=== PATIENT | male | born 1955 | race Caucasian/White ===

== ENCOUNTER 2020-06-15 23:47 | Emergency (ER) | payer MEDICARE, BC, SELFPAY ==
[2020-06-15 23:47] VITALS: BP 149/85; PULSE 92; RESP 15; TEMP 36.2; O2SAT 97; BMI 25.5
--- NOTE | 2020-06-16 00:02 | CT_ITS ---
STUDY: CT ABDOMEN AND PELVIS WITHOUT CONTRAST REASON FOR EXAM: Male, 64 years old. LEFT FLANK PAIN. H/O [place] RADIATION DOSAGE (If Supplied By Facility): CTDIvol = ( 7.71 ) mGy, DLP = ( 385.37 ) mGycm TECHNIQUE: Transaxial images were obtained from the dome of the diaphragm to the symphysis pubis without oral contrast, and without intravenous contrast. Sagittal and coronal images were reconstructed. Individualized dose optimization techniques were used for this CT. COMPARISON: None. FINDINGS: The visualized lung bases are unremarkable. The visualized portions of the heart are within normal limits. Normal liver. Normal gallbladder and extrahepatic biliary system. Normal spleen. Normal pancreas. Normal bilateral adrenal glands. Bilateral kidney stones, the largest measures 6 mm. There is moderate left hydronephrosis due to presence of 7 mm stone in the distal end of the left ureter at the ureterovesical junction. Normal visualized stomach. Normal small intestine. Normal colon. The appendix is visualized and appears normal. There is diffuse atherosclerotic calcification of the abdominal aorta, without a demonstrated aneurysm. Normal inferior vena cava. Normal retroperitoneum. Normal urinary bladder. There is a small umbilical hernia containing fat. There are diffuse degenerative changes of the visualized lumbar spine. CT/Abdomen/Pelvis without Cont IMPRESSION: Bilateral kidney stones, the largest measures 6 mm. There is moderate left hydronephrosis due to presence of 7 mm stone in the distal end of the left ureter at the ureterovesical junction. Electronically Signed: Aysha Bach, at 1:03 EDT Tel , Service support ,
[2020-06-16 00:18] LABS: Absolute Lymphocyte Count 0.97 X10^3/uL (0.83-4.51); Basophil# 0.05 X10^3/uL; Basophil% 0.6 % (0-1); Eosinophil# 0.21 X10^3/uL; Eosinophils% 2.6 % (0-5); Hematocrit 43.5 % (40-54); Hemoglobin 14.5 g/dL (13.0-16.5); Lymphocyte # 0.97 X10^3/ul (4.0); Lymphocyte % 11.8 % (19-41); Mean Corp Hgb Conc 33.3 g/dL (32-36); Mean Corpuscular Hgb 31.5 pg (27.0-32.0); Mean Corpuscular Volume 94.6 fL (80-94); Mean Platelet Vol. 9.8 fl (6.2-12.0); Monocyte% 12.2 % (0-10); NRBC Flagged by Analyzer 0 % (0-5); Neutrophil # 5.98 X10^3/uL (2.7-7.7); Neutrophil % 72.7 % (47-70); Platelet Count 238 K/mm3 (150-450); RBC Distribution Width CV 13.2 % (11.6-14.6); RBC Distribution Width SD 45.1 fl (35.1-43.9); White Blood Count 8.2 K/mm3 (4.4-11.0)
[2020-06-16 00:19] LABS: Bacteria 0 SEEN /hpf (None Seen); Mucous, Urine 0 SEEN /hpf (<or=2+); Squamous Epithelial Cells - UA 0 SEEN /hpf (0-5)
[2020-06-16 00:28] LABS: Anion Gap 5 (5-15); BUN 21 mg/dL (7-18); BUN/Creat Ratio 14.2 RATIO (10-20); Calcium,Total 8.9 mg/dL (8.5-10.1); Chloride 108 mmol/L (98-107); Creatinine, Serum 1.48 mg/dL (0.70-1.30); EST Glomerular Filtration Rate 51 mL/min (>60); Est Glom Filt Rate - Afr Amer 61 mL/min (>60); Estimated Creatinine Clearance 49.76 ml/min; Glucose 86 mg/dL (74-106); Potassium 3.8 mmol/L (3.5-5.1); Sodium Level 140 mmol/L (136-145)
[2020-06-16 00:29] LABS: Color, Urine Yellow (Yellow); Glucose, Dipstick Normal (Normal); Ketone-Dipstick Negative (Negative); Leukocyte Esterase-Dipstick Negative /ul (Negative); Nitrite-Dipstick Negative (Negative); Occult Blood-Urine 150 /ul (Negative); Protein-Dipstick 30 mg/dl (Negative); Urine Bilirubin Dipstick Negative (Negative); Urine Clarity Clear (Clear); Urine Urobilinogen 1 mg/dl (Normal)
[2020-06-16 00:42] LABS: Red Blood Cells-Urine 5-10 SEEN /hpf (0-5); White Blood Cells 0-5 SEEN /hpf (0-5)
--- NOTE | 2020-06-16 01:08 | ED.VISSUMM ---
- ER Visit Summary Date of Service: 06/16/20 Chief Complaint: [Flank pain] History of Present Illness: The patient is a 64 M [presents to the emergency department with complaint of flank pain for the last 2 days. Pain came on suddenly 2 days ago. She took some ibuprofen this evening and currently only rates his pain about a 5 out of 10. He does not anything for pain at this time. Patient does have history of kidney stones and states that he thinks he might be passing a kidney stone. He denies any fevers. He has had some urinary frequency and some dysuria but no hematuria. Patient otherwise has no medical history.] Physical Examination: [HEENT-PERRLA, EOMI. Cranial nerves II through XII grossly intact. TMs clear. Mucous membranes moist. No adenopathy. Cardiovascular-regular rate and rhythm without murmur or ectopy Lungs-clear to auscultation, chest wall stable without crepitus or subcu emphysema Abdomen-normoactive bowel sounds, soft, nontender, no rebound or rigidity, no peritoneal signs. Patient has some mild CVA tenderness on the left. Extremities-intact ?4, normal range of motion, normal pulses, atraumatic] Test Results: [CBC with differential was unremarkable. Chemistries unremarkable. Urinalysis showed 5-10 RBCs without signs of infection. BUN was [address] flank showed left hydroureter and hydronephrosis with a 7 mm stone in the distal end of the left ureter at the UVJ.] Emergency Department Course and Treatment: [ Established on arrival. Patient did not want anything for pain.] Treatment Plan: [Results discussed with patient. I offered to transfer the patient to another facility that had urology available given the size of the stone I explained that this may or may not pass. We do not have urology available this weekend. Patient would like to go home and try to pass the stone on his own. I will give him urine strainers and prescription for [place] for pain. Patient advised to return if worsening pain, fever, vomiting, or condition should worsen anyway.] Disposition: [Discharged home in stable condition] Impression: [Urolithiasis] This note was generated with [employer] software. It may contain incorrect words, spelling, and punctuation that were not noted in review of the chart prior to signing ED Disposition - Plan for ED Patient: Referrals: Varun Marquez MD [Primary Care Provider] -
--- NOTE | 2020-06-16 01:12 | ED.DEP ---
ED Disposition - Plan for ED Patient: Instructions: ED Renal Stone w Colic Prescriptions: Hydrocodone Bitart/Apap 5-325 [[place] 5MG-325MG] 1 tab PO Q4H PRN PRN 2 Days #20 tab PRN Reason: Pain Prescription Printed Referrals: Varun Marquez MD [Primary Care Provider] - Sung Piña MD [STAFF PHYSICIAN] - 3-5 Days
[2020-06-16 01:36] VITALS: BP 145/60; PULSE 79; RESP 18; O2SAT 96
== END 2020-06-16 01:37 | disposition home or self-care (01) ==
LOC: ED 06-16 00:29
PROVIDERS: Emergency Provider Emergency Medicine; PCP Family Medicine
DX: N13.2 Hydronephrosis with renal and ureteral calculous obstruction (principal); Z87.442 Personal history of urinary calculi
CPT/HCPCS: 74176; 80048; 81001; 85025; 99282

== ENCOUNTER → 2020-09-26 08:57 | Outpatient (CLI) | payer MEDICARE, BC, SELFPAY ==
--- NOTE | 2020-09-26 09:00 | RAD_ITS ---
STUDY: X-RAY - SACROILIAC JOINTS REASON FOR EXAM: Male, 65 years old. Left sided leg weakness, fall x3 weeks ago. TECHNIQUE: 3 view(s) of the sacroiliac joints were obtained. COMPARISON: None. FINDINGS: Normal bilateral sacroiliac joints. Normal visualized sacral ala and sacrum. Normal visualized iliac bones. Normal visualized soft tissue structures. RAD/S-I Jts 3 or More Views IMPRESSION: Normal x-ray examination of the bilateral sacroiliac joints. Electronically Signed: Jasen Cruz, at 13:06 EST , Service support ,
--- NOTE | 2020-09-26 09:00 | RAD_ITS ---
STUDY: X-RAY - LUMBAR SPINE REASON FOR EXAM: Male, 65 years old. Left sided leg weakness, fall x3 weeks ago. TECHNIQUE: 5 view(s) of the lumbar spine were obtained including oblique views. COMPARISON: None FINDINGS: Normal lumbar lordosis. There is no substantial scoliosis. There is a normal alignment of the vertebrae. There is multilevel endplate spondylosis of the lumbar vertebrae. There is multi-level degenerative disc disease with multi-level disc space narrowing. There is atherosclerotic calcification of the abdominal aorta without a demonstrated aneurysm. RAD/L/S Spine Min 4 Views IMPRESSION: Degenerative changes of the spine, as detailed above. Electronically Signed: Jasen Cruz, at 13:50 EST , Service support ,
[2020-09-26 12:18] LABS: Absolute Lymphocyte Count 1.26 X10^3/uL (0.83-4.51); Absolute Neutrophil Count 2.8 X10^3/uL (2.0-7.7); Basophil# 0.04 X10^3/uL; Basophil% 0.8 % (0-1); Eosinophil# 0.16 X10^3/uL; Eosinophils% 3.4 % (0-5); Hematocrit 45.2 % (40-54); Hemoglobin 13.6 g/dL (13.0-16.5); Lymphocyte # 1.26 X10^3/ul (4.0); Lymphocyte % 26.5 % (19-41); Mean Corp Hgb Conc 30.1 g/dL (32-36); Mean Corpuscular Hgb 29.6 pg (27.0-32.0); Mean Corpuscular Volume 98.5 fL (80-94); Mean Platelet Vol. 10.3 fl (6.2-12.0); Monocyte# 0.47 X10^3/uL; Monocyte% 9.9 % (0-10); NRBC Flagged by Analyzer 0 % (0-5); Neutrophil # 2.81 X10^3/uL (2.7-7.7); Neutrophil % 59.2 % (47-70); Platelet Count 255 K/mm3 (150-450); RBC Distribution Width CV 13.9 % (11.6-14.6); RBC Distribution Width SD 50.6 fl (35.1-43.9); Red Blood Count 4.59 M/mm3 (4.6-6.2); White Blood Count 4.8 K/mm3 (4.4-11.0)
[2020-09-26 12:38] LABS: AST(SGOT) 27 U/L (15-37); Alanine Aminotransfer ALT/SGPT 30 U/L (16-61); Albumin, Serum 3.7 g/dL (3.2-5.0); Alkaline Phosphatase 65 U/L (45-117); Anion Gap 4 (5-15); BUN 24 mg/dL (7-18); BUN/Creat Ratio 20.7 RATIO (10-20); Calcium,Total 8.9 mg/dL (8.5-10.1); Chloride 108 mmol/L (98-107); Cholesterol 233 mg/dL (200); Creatinine, Serum 1.16 mg/dL (0.70-1.30); EST Glomerular Filtration Rate 67 mL/min (>60); Est Glom Filt Rate - Afr Amer 81 mL/min (>60); Globulin 3.6 g/dL (2.2-4.2); Glucose 85 mg/dL (74-106); High Density Lipoprotein 53 mg/dL; Magnesium 1.5 mg/dL (1.6-2.6); Potassium 3.9 mmol/L (3.5-5.1); Protein, Total 7.3 g/dL (6.4-8.2); Sodium Level 141 mmol/L (136-145); Thyroid Stim Hormone (TSH) 1.59 uIU/mL (0.358-3.74); Triglycerides 77 mg/dL; Very Low Density Lipoprotein 15 mg/dL (5-40)
== END ==
PROVIDERS: PCP Family Medicine; Referring Provider Family Medicine; Visit Provider Family Medicine
DX: R29.898 Other symptoms and signs involving the musculoskeletal system (principal); Z13.220 Encounter for screening for lipoid disorders; R42 Dizziness and giddiness
CPT/HCPCS: 36415; 72110; 72202; 80053; 80061; 83735; 84443; 85025

== ENCOUNTER 2020-11-05 08:00 | Outpatient (RCR) | payer MEDICARE, BC, SELFPAY ==
--- NOTE | 2020-09-24 09:00 | HP.PTEVAL ---
Patient's Visit Information GORDY LEWIS is a 65 year old M referred to Physical Therapy by ORALIA Major with a diagnosis of dizziness and LOB. Date of Evaluation: 09/24/20 Physical Therapist: AILEEN Garnica - Visit Plan Frequency: 1x/Week Duration: 4 Weeks Plan: See the pt in 1 week to see if repositioning with the R Eply helped with his dizziness. Once that is corrected or imptoved test pt with FGA and VOR for further dizziness andn or LOB - Subjective Pt reports that he has a hard time getting up in am or if he lifts a heavy object gets dizzy or he loses his balance. 6 weeks or so ago he fell over a box at work and landed face first into some boxes and got a bloody nose out of it. On Wed he got a flu shot and then he was at work and fainted and laying on the floor and when he woke up he had a hard time concentrating and that it when the dizziness started. He has a hard time getting out of bed and hard time keeping his balance for awhile. Also whenenver he is lifting an object he loses his balance. He has a feeling of weakness in his back legs also. That all seems to come back periodically. Shortly after the fall he was diagnosed with COVID (about the first aug) and he also found out he had high BP. He gets dizzy when he rolls over and then he has some dizziness until he gets down the stairs and it is not room spinning at that point. If he puts forth an effort to lift something then he gets the feeling of weakness and general dizziness. - Objective Questionable Hallpike to the R. + for dizziness that lasted aprroc 60 seconds and no obvious to the naked eye nystagmus. -L Hallpike for dizziness or nystagmus. Re-tested R Hallpike and pt had increased dizziness that lasted aprox 60 seconds with no obvious nystagmus. Treated with the R Eply. Re-tested R hallpike and had slight dizziness for approx 30 seconds with no obvious nystagmus. Treated second time wit R Eply. Test R Hallpike again with only hint of dizziness that lasted 5 seconds and treated one more time with R Eply. Pt walking out with slight funny feeling in his head... advised pt to avoid prolong looking down the rest of the day - Goals Goal 1:: I HEP Goal Time Frame: 2 Weeks Goal 2:: Abolish dizziness with rolling to R side in bed Goal Time Frame: 2-4 Weeks Goal 3:: Test pt with FGA and with VOR Goal Time Frame: 2 Weeks - Rehabilitation Potential Rehabilitation Potential: Good - Anticipated Interventions Patient/Client Instruction: Educate patient on: Condition, Plan of Care For the Purpose of:: To improve muscle performance and motor function, To improve ability to perform ADL's, To increase tolerance to activity/condition/position, To improve performance and independence with ADL's, To improve ability of physical actions for home/community/work/leisure, To improve safety with gait Therapeutic Exercise to Include: Strength training, Balance training, Coordination, Postural training, Flexibilty training, Gait and locomotor training For the Purpose of:: To improve ability to perform ADL's, To increase tolerance to activity/condition/position, To improve performance and independence with ADL's, To decrease level of supervision to perform tasks, To improve ability of physical actions for home/community/work/leisure, To improve gait and locomotor functions, To improve balance, To improve safety with gait Functional Training to Include: Gait training For the Purpose of:: To improve gait and locomotor functions, To improve safety with gait Manual Therapy Techniques to Include: Other Comment: repositioning For the Purpose of:: To improve performance and independence with ADL's, To decrease level of supervision to perform tasks, To improve ability of physical actions for home/community/work/leisure, To improve gait and locomotor functions, To improve safety with gait Thank you for the opportunity to evaluate your patient. For Medicare and Medicare HMO plans, please review the plan of care and approve it. It will need to be FAXED BACK to us at [phone] for Medicare purposes. For Medicare only, by signing this I certify the plan of care. Please let me know if there are questions or concerns regarding this plan of care. Physician Signature: Date:
--- NOTE | 2020-10-01 08:11 | HP.PTREVAL ---
ORALIA Major, It has been my pleasure to treat GORDY LEWIS over the last 2 visits for dizziness and LOB. Please see the progress note below for an update on the physical therapy plan of care! Subjective: Pt reports that the dizziness is better. He has no dizziness when he first gets up in the morning. Since the treatment last week he has no dizziness. He reports that his balance is not so great particularly when he first gets up from sitting too long or if he lifts something that is a little too heavy. He reports that the Dr gave him a diagnosis of spinal stenosis. He has more weakness in his legs when he goes to lift something or carry something. No real pain. Objective/Function: Pt is very weak in his LE's!!! It seems to have come on him all of the sudden. -R Hallpike for dizziness and nystagmus. FGA: . LE MMT: B hip flex 3+/5, B hip abd 3+/5, B hip ext 2-/5, B knee flex 3+/5, B knee ext 4-/5, Pt able to raise his toes about 1/4 normal rom from the ground, and struggles with lifting his heels from the ground. Plan Plan: See the pt 2 X/ week for 4 weeks for LE strengthening of B hips, knees and ankles and some core strength with HEP first few visits to continue strengthening at home. May add some gait with head turns or some foam balance work along with strengthening..... Goals Goal 1:: I HEP Goal Time Frame: 2 Weeks Goal 2:: Abolish dizziness with rolling to R side in bed Goal Time Frame: 2-4 Weeks Goal Progress: Goal Met Goal 3:: Test pt with FGA and with VOR Goal Time Frame: 2 Weeks Goal Progress: Goal Met Goal 4:: Increase LE strength by 1/2 muscle grade (at the time of eval: LE MMT: B hip flex 3+/5, B hip abd 3+/5, B hip ext 2-/5, B knee flex 3+/5, B knee ext 4-/5, Pt able to raise his toes about 1/4 normal rom from the ground, and struggles with lifting his heels from the ground). 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 not feeling the weakness that he has now. Goal Time Frame: 4-6 Weeks Anticipated Interventions Patient/Client Instruction: Educate patient on: Condition, Plan of Care For the Purpose of:: To improve muscle performance and motor function, To improve ability to perform ADL's, To increase tolerance to activity/condition/position, To improve performance and independence with ADL's, To improve ability of physical actions for home/community/work/leisure, To improve safety with gait Therapeutic Exercise to Include: Strength training, Balance training, Coordination, Postural training, Flexibilty training, Gait and locomotor training For the Purpose of:: To improve ability to perform ADL's, To increase tolerance to activity/condition/position, To improve performance and independence with ADL's, To decrease level of supervision to perform tasks, To improve ability of physical actions for home/community/work/leisure, To improve gait and locomotor functions, To improve balance, To improve safety with gait Functional Training to Include: Gait training For the Purpose of:: To improve gait and locomotor functions, To improve safety with gait Manual Therapy Techniques to Include: Other Comment: repositioning For the Purpose of:: To improve performance and independence with ADL's, To decrease level of supervision to perform tasks, To improve ability of physical actions for home/community/work/leisure, To improve gait and locomotor functions, To improve safety with gait Please do not hesitate to contact me at [phone] by phone or if you have questions or concerns regarding this new plan of care! Sincerely, AILEEN Garnica
--- NOTE | 2020-12-24 10:53 | HP.PTDCSUM_ITS ---
It has been my pleasure to treat GORDY LEWIS referred by ORALIA Major, with the diagnosis of dizziness and LOB for a total of 10 visit(s). Discharge Date: 12/24/20 Please see the following information for a summary of their discharge status. Subjective: Pt reports that he has not had the spinning vertigo since the last visit but he still gets dizzy when he stands up too fast or sits up too fast. He reports that his leg weakness still persists with no pain. % Improvement: 25 Objective/Function: -R Hallpike for nystagmus or dizziness. Goal 1:: I HEP Goal 2:: Abolish dizziness with rolling to R side in bed Goal Progress: Goal Met Goal 3:: Test pt with FGA and with VOR Goal Progress: Goal Met Goal 4:: Increase LE strength by 1/2 muscle grade (at the time of eval: LE MMT: B hip flex 3+/5, B hip abd 3+/5, B hip ext 2-/5, B knee flex 3+/5, B knee ext 4-/5, Pt able to raise his toes about 1/4 normal rom from the ground, and struggles with lifting his heels from the ground). 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 not feeling the weakness that he has now. Plan: Hold chart X 2 weeks. pt will call in if he feels that his dizziness is due to BPPV is back. Pt will call in 2 weeks to let me know how he is doing. Discharge Comments: DC PT as pt is 100% better as far as his dizziness (still some if he stands up too fast but not like when he first came here) but his LE weakness persisits If there are questions or concerns regarding this patient's physical therapy, please feel free to call me at [phone]. Thank you for the referral of this patient. Sincerely, Lara Etienne, MPT
== END 2020-11-05 19:00 | disposition home or self-care (01) ==
LOC: PT 08:00
PROVIDERS: PCP Family Medicine; Referring Provider Physician Assistant; Visit Provider Physician Assistant
DX: R42 Dizziness and giddiness (principal)
CPT/HCPCS: 97110; 97161; 97530

== ENCOUNTER → 2021-01-13 08:45 | Outpatient (CLI) | payer MEDICARE, BC, SELFPAY ==
[2021-01-13 10:46] LABS: AST(SGOT) 23 U/L (15-37); Alanine Aminotransfer ALT/SGPT 39 U/L (16-61); Albumin, Serum 3.8 g/dL (3.2-5.0); Alkaline Phosphatase 84 U/L (45-117); Anion Gap 7 (5-15); BUN 21 mg/dL (7-18); BUN/Creat Ratio 18.4 RATIO (10-20); Calcium,Total 9.2 mg/dL (8.5-10.1); Chloride 106 mmol/L (98-107); Cholesterol 134 mg/dL (200); Creatinine, Serum 1.14 mg/dL (0.70-1.30); EST Glomerular Filtration Rate 68 mL/min (>60); Est Glom Filt Rate - Afr Amer 83 mL/min (>60); Globulin 3.8 g/dL (2.2-4.2); Glucose 92 mg/dL (74-106); High Density Lipoprotein 48 mg/dL; Magnesium 1.4 mg/dL (1.6-2.6); Potassium 3.8 mmol/L (3.5-5.1); Protein, Total 7.6 g/dL (6.4-8.2); Sodium Level 141 mmol/L (136-145); Triglycerides 95 mg/dL; Very Low Density Lipoprotein 19 mg/dL (5-40)
== END ==
PROVIDERS: PCP Family Medicine; Referring Provider Family Medicine; Visit Provider Family Medicine
DX: I10 Essential (primary) hypertension (principal); E83.42 Hypomagnesemia
CPT/HCPCS: 36415; 80053; 80061; 83735

== ENCOUNTER → 2021-03-13 12:08 | Outpatient (CLI) | payer MEDICARE, BC, SELFPAY ==
[2021-03-04 09:07] VITALS: BMI 25.5
--- NOTE | 2021-03-13 12:09 | MRI_ITS ---
STUDY: MRI BRAIN WITH AND WITHOUT CONTRAST REASON FOR EXAM: Male, 65 years old. Parkinsonism;Vertigo TECHNIQUE: Standardized multiplanar fat and water weighted pulse sequences were obtained. IV 15 cc dotarem was administered for the contrast portion of the examination. COMPARISON: None. FINDINGS: Normal size of the ventricles and extra-axial spaces for the patient''s age. Normal white matter tracts of the supratentorial brain. There is no evidence for recent intracranial ischemia or other cause of cytotoxic edema on diffusion weighted imaging (DWI). Normal T2* images of the brain without demonstrated susceptibility artifact. There is no demonstrated hemosiderin stain. Normal bilateral basal ganglia. Normal thalami. There is no extra-axial fluid accumulation. Normal flow voids within the major intracranial circulation suggesting patency by spin echo criteria. Normal venous enhancement. 2 cm mass of heterogeneous intensity within the parafalcine right frontal lobe with a surrounding hemosiderin ring with an adjacent feeding vessel but little contrast enhancement and no significant mass effect or vasogenic edema favoring a cavernous angioma or arteriovenous malformation. Normal sella turcica, pituitary gland, infundibular stalk, optic chiasm and hypothalamus. Normal tectal plate and pineal gland. Normal midbrain, silvestre and medulla. Normal cerebellum. Normal basal cisterns. Normal bilateral temporal bones. Normal bilateral internal auditory canals. No demonstrated orbital abnormality, within the constraints of a routine brain study. Normal visualized paranasal sinuses. Normal calvarium and skull base. Normal visualized soft tissue structures. Normal visualized upper cervical spine. MRI/Brain W/WO Contrast IMPRESSION: 2 cm mass of the right frontal lobe most consistent with a cavernous angioma or other vascular lesion. Electronically Signed: Shree Choi MD at 15:27 EDT Tel , Service support ,
[2021-03-13 12:36] LABS: CREATININE FINGERSTICK 1.5 mg/dL (0.70-1.30)
== END ==
PROVIDERS: PCP Family Medicine; Referring Provider Psychiatry & Neurology Neurology; Visit Provider Psychiatry & Neurology Neurology
DX: G20 Parkinson's disease (principal); R42 Dizziness and giddiness
CPT/HCPCS: 70553; A9575

== ENCOUNTER → 2021-03-28 08:50 | Outpatient (CLI) | payer MEDICARE, BC, SELFPAY ==
[2021-03-04 09:07] VITALS: BMI 25.5
--- NOTE | 2021-03-28 08:53 | CDU_ITS ---
Reason For Study: BRUIT, DIZZINESS, VERTIGO Rt. Velocities/BP Lt. Velocities/BP Prox CCA 95.6/12.1 cm/sec. Prox CCA 130.8/17.5 cm/sec. Mid CCA 102.1/16.0 cm/sec. Mid CCA 137.9/26.6 cm/sec. Dist CCA 94.3/16.0 cm/sec. Dist CCA 123.3/10.2 cm/sec. Prox ICA 98.1/20.8 cm/sec. Prox ICA 112.4/30.3 cm/sec. Mid ICA 129.0/32.1 cm/sec. Mid ICA 105.1/28.5 cm/sec. Dist ICA 125.3/24.8 cm/sec. Dist ICA 154.4/43.1 cm/sec. Rt. ICA/CCA = 129.0/102.1=1.3. Lt. ICA/CCA = 154.4/137.9=1.6. Prox ECA 179.1/5.7 cm/sec. Prox ECA 132.5/6.6 cm/sec. Rt. Vert. 58.9/10.5 cm/sec. Lt. Vert. 59.1/15.7 cm/sec. Right Extracranial There is homogeneous, smooth atherosclerotic plaque noted in the right common carotid artery. There is homogeneous, irregular atherosclerotic plaque noted in the right internal carotid artery. There is homogeneous, smooth atherosclerotic plaque noted in the right external carotid artery. Antegrade flow is noted in the right vertebral artery. There is heterogeneous, smooth atherosclerotic plaque noted in the right bulb. Left Extracranial There is homogeneous, smooth atherosclerotic plaque noted in the left common carotid artery. There is homogeneous, smooth atherosclerotic plaque noted in the left internal carotid artery. The tortuous nature of the left internal carotid artery may result in flow velocities overestimating the degree of stenosis. There is homogeneous, smooth atherosclerotic plaque noted in the left external carotid artery. Antegrade flow is noted in the left vertebral artery. Procedure Carotid Duplex [id number]. This is a Carotid Duplex examination using B-mode, color flow and specral Doppler. Exam performed in department. VL/Carotid Duplex Ultrasound Interpretation Summary Minimal irregular plaque at the proximal right internal carotid artery with melissa ocity based 50 to 69% stenosis although there is no plaque identified in the mid internal carotid art claudia at the site of slight velocity elevation. Less than 50% stenosis right external carotid artery Smooth plaque of the proximal left internal carotid artery. Velocity elevation is noted in the distal left internal carotid artery at the site of tortuosity but no plaque. Ag ain this is in the range of 50 to 69% stenosis although may be artificially elevated due to the to rtuosity Less than 50% stenosis left external carotid artery Patent antegrade vertebral arteries bilaterally Imaging findings do not suggest hemodynamically significant disease bilaterally Ordering Physician: Dao Pozo Referring Physician: Prokop. Brown Performed By: Xi Cavazos, YEYO, RVT
== END ==
PROVIDERS: PCP Family Medicine; Referring Provider Psychiatry & Neurology Neurology; Visit Provider Psychiatry & Neurology Neurology
DX: R42 Dizziness and giddiness (principal); I69.322 Dysarthria following cerebral infarction
CPT/HCPCS: 93880

== ENCOUNTER → 2021-04-30 09:34 | Outpatient (CLI) | payer MEDICARE, BC, SELFPAY ==
[2021-03-04 09:07] VITALS: BMI 25.5
[2021-04-30 12:29] LABS: Hemoglobin 14.8 g/dL (13.0-16.5); Mean Corp Hgb Conc 32.9 g/dL (32-36); Mean Corpuscular Hgb 31.3 pg (27.0-32.0); Mean Corpuscular Volume 95.1 fL (80-94); Mean Platelet Vol. 10.4 fl (6.2-12.0); Platelet Count 272 K/mm3 (150-450); RBC Distribution Width CV 13.3 % (11.6-14.6); RBC Distribution Width SD 47.3 fl (35.1-43.9); Red Blood Count 4.73 M/mm3 (4.6-6.2); White Blood Count 5.6 K/mm3 (4.4-11.0)
[2021-04-30 12:41] LABS: Vitamin B12 626 pg/mL (211-911)
[2021-04-30 13:32] LABS: AST(SGOT) 26 U/L (15-37); Alanine Aminotransfer ALT/SGPT 36 U/L (16-61); Albumin, Serum 3.8 g/dL (3.2-5.0); Alkaline Phosphatase 74 U/L (45-117); Anion Gap 4 (5-15); BUN 16 mg/dL (7-18); BUN/Creat Ratio 15.7 RATIO (10-20); Calcium,Total 8.9 mg/dL (8.5-10.1); Chloride 106 mmol/L (98-107); Creatinine, Serum 1.02 mg/dL (0.70-1.30); EST Glomerular Filtration Rate 78 mL/min (>60); Est Glom Filt Rate - Afr Amer 94 mL/min (>60); Globulin 3.7 g/dL (2.2-4.2); Glucose 85 mg/dL (74-106); Potassium 3.9 mmol/L (3.5-5.1); Protein, Total 7.5 g/dL (6.4-8.2); Sodium Level 137 mmol/L (136-145); Thyroid Stim Hormone (TSH) 2.61 uIU/mL (0.358-3.74)
[2021-05-01 16:09] LABS: Free Kappa Light Chains 29.8 mg/L (3.3-19.4); Free Lambda Light Chains 24.2 mg/L (5.7-26.3)
== END ==
PROVIDERS: PCP Family Medicine; Referring Provider Psychiatry & Neurology Neurology; Visit Provider Psychiatry & Neurology Neurology
DX: G57.90 Unspecified mononeuropathy of unspecified lower limb (principal); G25.0 Essential tremor; H81.90 Unspecified disorder of vestibular function, unspecified ear
CPT/HCPCS: 36415; 80053; 82140; 82607; 82746; 83883; 84443; 85027

== ENCOUNTER → 2021-05-10 09:19 | Outpatient (CLI) | payer MEDICARE, BC, SELFPAY ==
[2021-03-04 09:07] VITALS: BMI 25.5
--- NOTE | 2021-05-10 09:19 | MRI_ITS ---
STUDY: MRI CERVICAL SPINE WITHOUT CONTRAST REASON FOR EXAM: Male, 65 years old. neck pain; possible cervical myelopathy TECHNIQUE: Standardized fat and water weighted pulse sequences were obtained in the sagittal and axial planes. COMPARISON: None FINDINGS: Normal foramen magnum and brainstem-cervical cord junction. Normal craniovertebral junction. Normal anterior atlantoaxial articulation. Normal odontoid process. Normal cervical lordosis. Normal vertebral bodies and posterior osseous elements. C2-3: Normal endplates. Normal disc height, signal and morphology. Normal central canal and intervertebral neural foramina. C3-4: Normal endplates. Normal disc height, signal and morphology. Normal central canal and intervertebral neural foramina. C4-5: Normal endplates. Normal disc height, signal and morphology. Normal central canal and intervertebral neural foramina. C5-6: Normal endplates. Normal disc height, signal and morphology. Small central disc protrusion causes mild cord flattening. Normal central canal. Mild foraminal stenosis due to uncinate hypertrophy. C6-7: Normal endplates. Normal disc height, signal and morphology. Normal central canal and intervertebral neural foramina. C7-T1: Normal endplates. Normal disc height, signal and morphology. Normal central canal and intervertebral neural foramina. Normal cervical cord. Normal visualized soft tissue structures. MRI/Spine Cervical (Routine) IMPRESSION: 1. Small C5-6 disc protrusion. 2. Mild C5-6 foraminal encroachment. Electronically Signed: Lainey Dunn MD at 22:25 EDT Tel , Service support ,
== END ==
PROVIDERS: PCP Family Medicine; Referring Provider Psychiatry & Neurology Neurology; Visit Provider Psychiatry & Neurology Neurology
DX: M54.2 Cervicalgia (principal)
CPT/HCPCS: 72141

== ENCOUNTER → 2021-05-13 09:15 | Outpatient (CLI) | payer MEDICARE, BC, SELFPAY ==
[2021-03-04 09:07] VITALS: BMI 25.5
[2021-05-13 10:25] LABS: ALB/GLOB Ratio 1.1 RATIO (0.9-2.4); AST(SGOT) 21 U/L (15-37); Alanine Aminotransfer ALT/SGPT 28 U/L (16-61); Albumin, Serum 4.1 g/dL (3.2-5.0); Alkaline Phosphatase 74 U/L (45-117); Anion Gap 3 (5-15); BUN 19 mg/dL (7-18); BUN/Creat Ratio 16.8 RATIO (10-20); Calcium,Total 9.4 mg/dL (8.5-10.1); Chloride 106 mmol/L (98-107); Cholesterol 152 mg/dL (200); Creatinine, Serum 1.13 mg/dL (0.70-1.30); EST Glomerular Filtration Rate 69 mL/min (>60); Est Glom Filt Rate - Afr Amer 83 mL/min (>60); Globulin 3.7 g/dL (2.2-4.2); Glucose 91 mg/dL (74-106); High Density Lipoprotein 49 mg/dL; Potassium 4.8 mmol/L (3.5-5.1); Protein, Total 7.8 g/dL (6.4-8.2); Sodium Level 139 mmol/L (136-145); Triglycerides 96 mg/dL; Very Low Density Lipoprotein 19 mg/dL (5-40)
== END ==
PROVIDERS: PCP Family Medicine; Visit Provider Family Medicine
DX: E78.00 Pure hypercholesterolemia, unspecified (principal)
CPT/HCPCS: 36415; 80053; 80061

== ENCOUNTER → 2021-06-23 12:51 | Outpatient (CLI) | payer MEDICARE, BC, SELFPAY ==
[2021-03-04 09:07] VITALS: BMI 25.5
--- NOTE | 2021-06-23 14:19 | SP.MBSS_ITS ---
Modified Barium Swallow - Patient Information Study Date: 06/23/21 Study Time: 13:00 Direct Billable Minutes: 120 Total Minutes procedure & reportin Diagnosis: Dysphagia, unspecified (R13.10) Referring Physician: Dao Pozo Reason for Referral: Patient reported complaints of increased difficulty swallowing both food and drink. He was referred for MBS study for objective assessment of swallow function and aspiration risk. Medical History: The patient is a 65 year old male with PMH listed below who recently began outpatient PT for suspected Parkinson's disease (PD). He reported he is currently being treated for suspected PD with medication. When at outpatient PT, the patient informed the therapist he was having increased difficulty swallowing and was referred by his physician for MBSS to further assess swallow concerns. He reports occasional coughing with food and drink, especially when taking large or fast bites/sips. He reports more difficulty swallowing difficult to chew foods, such as steak. He denies history of pneumonia or choking. He reports occasional reflux, which he manages by maintaining his hydration. PMH: Arthritis, Cataracts, bilateral, Dizziness, High cholesterol, History of kidney stones, History of nephrolithotomy with removal of calculi, Hypertension, Tremor. Current Diet Ordered: Regular textures / Thin liquids Dentition: WNL Mental Status: WNL Respiratory Status: Oxygenating on Room Air - Penetration-Aspiration Scale Penetration-Aspiration Scale: OBJECTIVE ASSESSMENT OF SWALLOW FUNCTION (QUANTITATIVE ? PER TRIAL): PENETRATION / ASPIRATION SCALE (POOLE): 1 = does not enter airway 2 = enters airway/above vocal folds/ejected 3 = enters airway/above vocal folds/not ejected 4 = enters airway/contacts vocal folds/ejected 5 = enters airway/contacts vocal folds/not ejected 6 = enters airway/below vocal folds/ejected 7 = enters airway/below vocal folds/not ejected despite effort 8 = enters airway/below vocal folds/no effort VIDEOFLOROSCOPIC SCALE SCORE (POOLE): Grade I = aspiration of material that has penetrated into the laryngeal vestibule, intact cough reflex Grade II = aspiration < 10 % of the bolus, intact cough reflex Grade III = aspiration of < 10 % of the bolus, reduced cough reflex or aspiration of > 10 % of the bolus, intact cough reflex Grade IV = aspiration of > 10 % of the bolus, reduced cough reflex - Penetration-Aspiration Scale Score Thin Liquid via teaspoon Result: 1= does not enter airway Thin Liquid via teaspoon Trial 2 Result: 1= does not enter airway Thin Liquid via sequential sips from cup Result: 8= enters airway/below vocal folds/no effort - After the swallow, ASSISTANT READING TEACHER cued pt to cough which was somewhat effective at clearing residue from laryngeal vestibule. Thin Liquid via small single sip from cup Result: 1= does not enter airway Thin Liquid via small single sip from cup Trial 2 Result: 1= does not enter airway [place] Thick Liquid via small single sip from cup Result: 2= enter airway/above vocal folds/ejected - Trace penetration Honey Thick Liquid via small single sip from cup Result: 2= enter airway/above vocal folds/ejected - Trace penetration Comment: During trial, ASSISTANT READING TEACHER observed trace postprandial aspiration. Unable to determine from which trial/residues the contrast aspirated from. Pudding with Esophageal Screen Result: 1= does not enter airway Cookie Result: 1= does not enter airway Thin Liquid via single sip from straw Result: 2= enter airway/above vocal folds/ejected Thin Liquid via small single sip from cup Trial 3 Result: 2= enter airway/above vocal folds/ejected - Trace penetration - Oral Phase Labial Seal: No Labial Escape Tongue Control During Bolus Hold: Posterior escape of less than half of bolus Bolus Preparation/Mastication: Slow prolonged chewing/mashing with complete recollection Bolus Transport/Lingual Motion: Repetitive/disorganized tongue motion - Mild lingual pumping observed with cookie trial Oral Residue: Residue collection on oral structures - Pharyngeal Phase Initiation of Pharyngeal Swallow: Bolus head at posterior laryngeal surgace of epiglottis - Bolus head in laryngeal vestibule at initiation of swallow of sequential sips of thin liquids via cup. Soft Palate Elevation: No bolus between soft palate and pharyngeal wall Laryngeal Elevation: Partial superior movement thyroid cart/partial apprx aryt- epig petiole Anterior Hyoid Excursion: Partial anterior movement Epiglottic Movement: Partial inversion Laryngeal Vestibule Closure at Height of Swallow: Incomplete; narrow column of air/contrast in laryngeal vestibule Pharyngeal Stripping Wave: Present - complete Pharyngoesophageal Segment Opening: Parital distension and partial duration; parital obstruction of flow - Retention of min contrast consistently seen in the UES, as well as in the pyriform sinuses due to decreased distension/duration of UES opening. Tongue Base Retraction: Narrow column of contrast between tongue base & post. pharyngeal wall Pharyngeal Residue: Collection of residue within or on pharyngeal structures - Esophageal Phase Esophageal Clearance: Esophageal retention - Treatment Strategies Effects of treatment strategies attemped:: Decreased bolus rate = Effective in improving swallow onset and decreasing presence of aspiration of thin liquid trials. Use of straw = Not effective as it increased amount of laryngeal penetration of thin liquid trials. Cued cough and re-swallow = Somewhat effective in clearing aspirated contrast from the laryngeal vestibule and airway. - Diagnosis/Impression Diagnosis: Mild-moderate oropharyngeal phase dysphagia (R13.12) Impression: The oral phase of the swallow is marked primarily by prolonged but effective mastication of cookie trial, mild oral residues of oral cavity after the swallow, and premature posterior spillage of bolus - especially noted with sequential sips of thin liquid trial. The pharyngeal phase of the swallow is marked by delayed initiation of the pharyngeal swallow and decreased airway closure. The patient presents with moderately decreased anterior hyoid excursion and laryngeal elevation resulting inconsistent inversion of the epiglottis. Due to delayed initiation of swallow onset and decreased bolus control, bolus head of sequential sips of thin liquids were observed inside the laryngeal vestibule upon swallow onset. The patient demonstrated SILENT aspiration of sequential sips of thin liquids. He had flash penetration of various single liquid trials above the vocal folds that fully ejected from the laryngeal vestibule. Amount/depth of penetration increased for single sip of thin liquids consumed via straw; however, contrast did remain above the vocal folds and fully eject. - Recommendations Diet: Regular Textures - Easy to Chew (IDDSI Level 7), Thin Liquids Comment: Sips one at a time via cup. Compensatory Strategies: Small Bites, Small Sips, Slow Rate, Sitting upright, Remain sitting upright for 30 minutes after PO intake Supervision: Assist as needed Recommend Repeat Modified Barium Swallow: TBD Need for Skilled Speech Therapy Services: Yes Comment: Would recommend the patient for OP speech therapy services to address deficits in the oral and pharyngeal phases of his swallow. Would recommend thorough training in diet recommendations and aspiration precautions, in addition to implementation of a home oropharyngeal exercise program to promote improved lingual coordination, swallow onset, anterior hyoid excursion, laryngeal elevation, and UES opening (e.g. [place], effortful swallow, Phani, and Shaker). Recommended Referrals: GI Consult - If persistent concerns for reflux at or following meals, would consider patient for GI consult due to observed slowed esophageal motility. Education Completed: 1. Described result of evaluation., 7. Pt requires further education on strategies & risks. Comment: Reviewed results of MBS study with patient, informed pt of SILENT aspiration risk with continuous sips of thin liquids, increased risk for aspiration related illnesses, and educated the patient in diet and compensatory strategy recommendations to reduce his risk for aspiration. Additionally, reviewed recommendations for OP speech therapy to implement exercise program to improve oropharyngeal function. - Status Active ST Patient: Active - Contact Information [facility] [place] Speech Therapy:: [place] Richard M.A. [facility]-ASSISTANT READING TEACHER Speech-Language Pathologist [facility] [place] [address] [place] [address] [email or web address] [phone] 06/23/21 14:48
== END ==
PROVIDERS: PCP Family Medicine; Referring Provider Psychiatry & Neurology Neurology; Visit Provider Psychiatry & Neurology Neurology
DX: R13.10 Dysphagia, unspecified (principal)
CPT/HCPCS: 74230; 92611

== ENCOUNTER 2021-08-15 08:30 | Outpatient (RCR) | payer MEDICARE, BC, SELFPAY ==
[2021-03-04 09:07] VITALS: BMI 25.5
--- NOTE | 2021-06-09 09:43 | HP.PTEVAL ---
Patient's Visit Information GORDY LEWIS is a 65 year old M referred to Physical Therapy by Dr. Dao Pozo MD with a diagnosis of PD. Date of Evaluation: 06/09/21 Physical Therapist: AILEEN Garnica - Visit Plan Frequency: 2x /Week Duration: 4-6 Weeks Plan: Pt agreed and wants me to contact Dr about AFO's and his difficulty swallowing issue.... contacted Dr and they will decide if should go ahead with addressing the above now or wait will his appt next month. Either way, they will contact the patient. 2X/ week for 4-6 weeks for UE and LE strengthening, gait training, functional activities, balance activities, dual tasking activites with HEP - Subjective Pt was recently dx with PD. His weakness and balance issues have gotten worse since he fell at work. He had CoVID as well and he is just not getting back to where he was. He barely can go up and down the steps now. He has to do steps to get up to his bedroom. If he takes his time and uses the railing he is fine. He has been advised to change his home. He is retired now. He also has a history of L-stenosis (moderate). That seems to have come on quickly too. He sees his Dr again in a month.... He is on dopamine, BP med, cholesterol and magnesium. He gets dizzy at times and just a general feeling of weakness and LOB. He has had no falls in the last 6 months. He has started using the cane shortly after the first of the year.... in Oct his son got him the cane. He has not noticed a difference since starting the Dopamine. He did have a c-spine MRI as a consideration for LE weakness. He feels that he can walk a block with his cane and then he starts to get weaker the longer he walks and at about a xlock he feels that he has to rest. Stairs: up and down stairs he alternates with 1 hand rail. Sit to stand: he needs to use his hands to get out of a chair. 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 He is able to do his housework and rest if need be. He is progressivly getting weaker. Pt is getting more winded. Pt reports that he does choke on his food if he eats too quickly or with too big of a mouthful. If he takes his time he feels that he does ok... the swallowing issue comes and goes. He even chokes on a glass of water at times.... I encouraged the pt to talk to the Dr about it. Pt reports that he takes shorter steps and would be willing to get B ankle AFO's to help with his tripping on his feet (currently does this once a day).... He feels that his feet drag against the floor. - Objective Gait: walks with slow steppage gait with decrease DF and a straight cane. No arm swing. He is SOB after walking short distances and needs to sit and rest. Steps: up and down with 2 feet to a stair with B hand rails with CGA and slow pace. Tight B HS. LE MMT: B hip flex 3-/4, B knee ext 3+/5, B knee flex 3-/4, B hip abd 3-/5, pt is able to do 1/2 normal ROM bridge. B ankle DF 2-/5. He is not able to pecan picker his feet in standing. He can pecan picker his heels somewhat but not controlled nor steady. UE MMT: B shld flex 3-/4, B shld ABD 3-/4, ER and IR B 3+/5. FGA: 13. Seated opp arm and leg: (was discoordinated with opp arm and leg and difficulty lifting his legs into marching position). - Balance/Special Test Scores Functional Gait Assessment Score: 13 % Disability: 56.6700 - Goals Goal 1:: I HEP Goal Time Frame: 4-6 Weeks Goal 2:: Increase balance by increase FGA by 5 points to decrease fall risk (FGA at time of eval 13). Goal Time Frame: 4-6 Weeks Goal 3:: Increase UE and LE strength by 1/2 muscle grade (at time of the eval: LE MMT: B hip flex 3-/4, B knee ext 3+/5, B knee flex 3-/4, B hip abd 3-/5, pt is able to do 1/2 normal ROM bridge. B ankle DF 2-/5. He is not able to pecan picker his feet in standing. He can pecan picker his heels somewhat but not controlled nor steady). Goal Time Frame: 4-6 Weeks Goal 4:: Be able to walk with increase stride and increase heel to toe gait pattern with least restrictive device. Goal Time Frame: 4-6 Weeks Goal 5:: Be able to complete X 10 reps each leg seated opp arm and leg march consistetly in a row. Goal Time Frame: 4-6 Weeks - Rehabilitation Potential Rehabilitation Potential: Good - Anticipated Interventions Patient/Client Instruction: Educate patient on: Condition, Plan of Care For the Purpose of:: To improve nutrient delivery to tissue, To improve muscle performance and motor function, To improve ability to perform ADL's, To increase tolerance to activity/condition/position, To improve performance and independence with ADL's, To decrease level of supervision to perform tasks, To improve ability of physical actions for home/community/work/leisure, To improve gait and locomotor functions, To increase flexibility/ROM, To improve endurance, To improve balance, To improve safety with gait Therapeutic Exercise to Include: Strength training, Balance training, Postural training, Flexibilty training, Gait and locomotor training, Neuromotor development, Passive ROM, Active ROM, Dynamic Lumbar Stabilization For the Purpose of:: To improve muscle performance and motor function, To improve ability to perform ADL's, To increase tolerance to activity/condition/position, To improve performance and independence with ADL's, To decrease level of supervision to perform tasks, To improve ability of physical actions for home/community/work/leisure, To improve gait and locomotor functions, To improve health of tissue, To increase flexibility/ROM, To improve balance, To improve safety with gait Functional Training to Include: ADL Training, Gait training For the Purpose of:: To increase oxygenation perfusion, To improve muscle performance and motor function, To improve ability to perform ADL's, To increase tolerance to activity/condition/position, To improve performance and independence with ADL's, To decrease level of supervision to perform tasks, To improve ability of physical actions for home/community/work/leisure, To improve gait and locomotor functions, To improve health of tissue, To increase flexibility/ROM, To improve balance, To improve safety with gait Thank you for the opportunity to evaluate your patient. For Medicare and Medicare HMO plans, please review the plan of care and approve it. It will need to be FAXED BACK to us at [phone] for Medicare purposes. For Medicare only, by signing this I certify the plan of care. Please let me know if there are questions or concerns regarding this plan of care. Physician Signature: Date:
--- NOTE | 2021-07-04 10:58 | HP.PTREVAL ---
Dr. Dao Pozo MD, It has been my pleasure to treat GORDY LEWIS over the last 9 visits for PD. Please see the progress note below for an update on the physical therapy plan of care! Subjective: Pt has no pain today. He feels tired today. He feels that he has not seen too much progress. His balance has been so-so. He returns to the Dr on Jul 10. Pt feels that he is 25% better because he gets to come here and looks forward to coming here. Physically he has not seen much difference yet. Objective/Function: Gait: slow more short stride with a cane and still flexed trunk and SOB. FGA: 13. LE MMT;;;; Remains the same Plan Plan: 2X/ week for 4-6 weeks for UE and LE strengthening, gait training, functional activities, balance activities, dual tasking activities with HEP. Discussed Delay the Disease with the pt and he would like to start with the next session after some PT. Balance/Gait/Functional tests - Balance/Special Test Scores Functional Gait Assessment Score: 13 % Disability: 56.6700 Lower Extremity Functional Score: 22 Goals Goal 1:: I HEP Goal Time Frame: 4-6 Weeks Goal 2:: Increase balance by increase FGA by 5 points to decrease fall risk (FGA at time of eval 13). Goal Time Frame: 4-6 Weeks Goal 3:: Increase UE and LE strength by 1/2 muscle grade (at time of the eval: LE MMT: B hip flex 3-/4, B knee ext 3+/5, B knee flex 3-/4, B hip abd 3-/5, pt is able to do 1/2 normal ROM bridge. B ankle DF 2-/5. He is not able to diamond picker his feet in standing. He can diamond picker his heels somewhat but not controlled nor steady). Goal Time Frame: 4-6 Weeks Goal 4:: Be able to walk with increase stride and increase heel to toe gait pattern with least restrictive device. Goal Time Frame: 4-6 Weeks Goal 5:: Be able to complete X 10 reps each leg seated opp arm and leg march consistetly in a row. Goal Time Frame: 4-6 Weeks Anticipated Interventions Patient/Client Instruction: Educate patient on: Condition, Plan of Care For the Purpose of:: To improve nutrient delivery to tissue, To improve muscle performance and motor function, To improve ability to perform ADL's, To increase tolerance to activity/condition/position, To improve performance and independence with ADL's, To decrease level of supervision to perform tasks, To improve ability of physical actions for home/community/work/leisure, To improve gait and locomotor functions, To increase flexibility/ROM, To improve endurance, To improve balance, To improve safety with gait Therapeutic Exercise to Include: Strength training, Balance training, Postural training, Flexibilty training, Gait and locomotor training, Neuromotor development, Passive ROM, Active ROM, Dynamic Lumbar Stabilization For the Purpose of:: To improve muscle performance and motor function, To improve ability to perform ADL's, To increase tolerance to activity/condition/position, To improve performance and independence with ADL's, To decrease level of supervision to perform tasks, To improve ability of physical actions for home/community/work/leisure, To improve gait and locomotor functions, To improve health of tissue, To increase flexibility/ROM, To improve balance, To improve safety with gait Functional Training to Include: ADL Training, Gait training For the Purpose of:: To increase oxygenation perfusion, To improve muscle performance and motor function, To improve ability to perform ADL's, To increase tolerance to activity/condition/position, To improve performance and independence with ADL's, To decrease level of supervision to perform tasks, To improve ability of physical actions for home/community/work/leisure, To improve gait and locomotor functions, To improve health of tissue, To increase flexibility/ROM, To improve balance, To improve safety with gait Please do not hesitate to contact me at [phone] by phone or if you have questions or concerns regarding this new plan of care! Sincerely, AILEEN Garnica
--- NOTE | 2021-07-18 09:05 | HP.PTREVAL ---
Dr. Dao Pozo MD, It has been my pleasure to treat GORDY LEWIS over the last 12 visits for PD. Please see the progress note below for an update on the physical therapy plan of care! Subjective: Pt reports that he wants more PT. He is more confident with his balance and knowing that he can do things if he takes his time. He is not sure how much strength he has gained. Pt feels much better when he moves. Objective/Function: Seated opp arm and leg X 3 and then reverted back to same side. Very minor changes in strength...some increase ROM in bridges. Pt struggles to get out of a chair and generally has to pull self up. FGA 14.. slightly decrease Plan Plan: Pt to think about continuing with PD class after this next session and whether he wants HEP vs gym exercises. 2X/ week for 3 additional weeks for UE and LE strengthening, gait training, functional activities, balance activities, dual tasking activities with HEP. Discussed Delay the Disease with the pt and he would like to start with the next session after some PT. Balance/Gait/Functional tests - Balance/Special Test Scores Functional Gait Assessment Score: 14 % Disability: 53.3400 Lower Extremity Functional Score: 27 Goals Goal 1:: I HEP Goal Time Frame: 4-6 Weeks Goal Progress: Progressing Goal 2:: Increase balance by increase FGA by 5 points to decrease fall risk (FGA at time of eval 13). Goal Time Frame: 4-6 Weeks Goal 3:: Increase UE and LE strength by 1/2 muscle grade (at time of the eval: LE MMT: B hip flex 3-/4, B knee ext 3+/5, B knee flex 3-/4, B hip abd 3-/5, pt is able to do 1/2 normal ROM bridge. B ankle DF 2-/5. He is not able to supervisor opening and picking his feet in standing. He can supervisor opening and picking his heels somewhat but not controlled nor steady). Goal Time Frame: 4-6 Weeks Goal 4:: Be able to walk with increase stride and increase heel to toe gait pattern with least restrictive device. Goal Time Frame: 4-6 Weeks Goal 5:: Be able to complete X 10 reps each leg seated opp arm and leg march consistetly in a row. Goal Time Frame: 4-6 Weeks Goal Progress: Progressing Anticipated Interventions Patient/Client Instruction: Educate patient on: Condition, Plan of Care For the Purpose of:: To improve nutrient delivery to tissue, To improve muscle performance and motor function, To improve ability to perform ADL's, To increase tolerance to activity/condition/position, To improve performance and independence with ADL's, To decrease level of supervision to perform tasks, To improve ability of physical actions for home/community/work/leisure, To improve gait and locomotor functions, To increase flexibility/ROM, To improve endurance, To improve balance, To improve safety with gait Therapeutic Exercise to Include: Strength training, Balance training, Postural training, Flexibilty training, Gait and locomotor training, Neuromotor development, Passive ROM, Active ROM, Dynamic Lumbar Stabilization For the Purpose of:: To improve muscle performance and motor function, To improve ability to perform ADL's, To increase tolerance to activity/condition/position, To improve performance and independence with ADL's, To decrease level of supervision to perform tasks, To improve ability of physical actions for home/community/work/leisure, To improve gait and locomotor functions, To improve health of tissue, To increase flexibility/ROM, To improve balance, To improve safety with gait Functional Training to Include: ADL Training, Gait training For the Purpose of:: To increase oxygenation perfusion, To improve muscle performance and motor function, To improve ability to perform ADL's, To increase tolerance to activity/condition/position, To improve performance and independence with ADL's, To decrease level of supervision to perform tasks, To improve ability of physical actions for home/community/work/leisure, To improve gait and locomotor functions, To improve health of tissue, To increase flexibility/ROM, To improve balance, To improve safety with gait Please do not hesitate to contact me at [phone] by phone or if you have questions or concerns regarding this new plan of care! Sincerely, Lara Etienne MPT
--- NOTE | 2021-08-08 08:57 | HP.PTREVAL_ITS ---
Dr. Dao Pozo MD, It has been my pleasure to treat GORDY LEWIS over the last 18 visits for PD. Please see the progress note below for an update on the physical therapy plan of care! Subjective: Pt got his AFO's and he is struggling to walk with them as it is an extra weight on his legs and his balance is a little more off. Objective/Function: Gait with front wheeled walker: decreased heel strike on the L and B flexed knees, trunk and at times the walker would be out in front of him. He agreed that his walking is much more efficient with the walker. LE MMT: B hip flex 3+/4, B knee ext 3+/5, B knee flex 3-/4, B hip abd 3-/5. Feel that pt has not made much improvement in strength or balance. Plan Plan: See the Pt X 2 visits for HEP with written instuction to continue at home and also with PD class. Balance/Gait/Functional tests - Balance/Special Test Scores Functional Gait Assessment Score: 14 % Disability: 53.3400 Lower Extremity Functional Score: 22 Goals Goal 1:: I HEP Goal Time Frame: 4-6 Weeks Goal Progress: Progressing Goal 2:: Increase balance by increase FGA by 5 points to decrease fall risk (FGA at time of eval 13). Goal Time Frame: 4-6 Weeks Goal 3:: Increase UE and LE strength by 1/2 muscle grade (at time of the eval: LE MMT: B hip flex 3-/4, B knee ext 3+/5, B knee flex 3-/4, B hip abd 3-/5, pt is able to do 1/2 normal ROM bridge. B ankle DF 2-/5. He is not able to sisal picker his feet in standing. He can sisal picker his heels somewhat but not controlled nor steady). Goal Time Frame: 4-6 Weeks Goal 4:: Be able to walk with increase stride and increase heel to toe gait pattern with least restrictive device. Goal Time Frame: 4-6 Weeks Goal 5:: Be able to complete X 10 reps each leg seated opp arm and leg march consistetly in a row. Goal Time Frame: 4-6 Weeks Goal Progress: Progressing Anticipated Interventions Patient/Client Instruction: Educate patient on: Condition, Plan of Care For the Purpose of:: To improve nutrient delivery to tissue, To improve muscle performance and motor function, To improve ability to perform ADL's, To increase tolerance to activity/condition/position, To improve performance and independence with ADL's, To decrease level of supervision to perform tasks, To improve ability of physical actions for home/community/work/leisure, To improve gait and locomotor functions, To increase flexibility/ROM, To improve endurance, To improve balance, To improve safety with gait Therapeutic Exercise to Include: Strength training, Balance training, Postural training, Flexibilty training, Gait and locomotor training, Neuromotor development, Passive ROM, Active ROM, Dynamic Lumbar Stabilization For the Purpose of:: To improve muscle performance and motor function, To i mprove ability to perform ADL's, To increase tolerance to activity/condition/position, To improve performance and independence with ADL's, To decrease level of supervision to perform tasks, To improve ability of physical actions for home/community/work/leisure, To improve gait and locomotor functions, To improve health of tissue, To increase flexibility/ROM, To improve balance, To improve safety with gait Functional Training to Include: ADL Training, Gait training For the Purpose of:: To increase oxygenation perfusion, To improve muscle performance and motor function, To improve ability to perform ADL's, To increase tolerance to activity/condition/position, To improve performance and independence with ADL's, To decrease level of supervision to perform tasks, To improve ability of physical actions for home/community/work/leisure, To improve gait and locomotor functions, To improve health of tissue, To increase flexibility/ROM, To improve balance, To improve safety with gait Please do not hesitate to contact me at [phone] by phone or if you have questions or concerns regarding this new plan of care! Sincerely, Lara Etienne MPT
--- NOTE | 2021-08-15 09:45 | HP.PTDCSUM ---
It has been my pleasure to treat GORDY LEWIS referred by Dr. Dao Pozo MD, with the diagnosis of PD for a total of 20 visit(s). Discharge Date: 08/15/21 Please see the following information for a summary of their discharge status. Subjective: Pt reports that this is his last visit. He will try and do exercises at home and a gym exercises and possible do mat exercises here. He spoke to his Dr and they said they will try and send him to a Neurosurgeon. Pt will go to [facility] and see about getting a front wheeled walker today. He feels weaker today. B hips Pain Intensity (Out of 10): 2 Back pain Pain Intensity (Out of 10): 0 % Improvement: 10 Objective/Function: Whole body weakness persists. Posture is getting weaker and weaker in standing. Pt has to pull self to stand sitting on black foam. Called MD on Wednesday and spoke to nurse and she said they would contact the pt about test results and send over script for front wheeled walker.... script was given to pt on Wed for front wheeled walker. Goal 1:: I HEP Goal Progress: Goal Met Goal 2:: Increase balance by increase FGA by 5 points to decrease fall risk (FGA at time of eval 13). Goal Progress: Not Progressing Goal 3:: Increase UE and LE strength by 1/2 muscle grade (at time of the eval: LE MMT: B hip flex 3-/4, B knee ext 3+/5, B knee flex 3-/4, B hip abd 3-/5, pt is able to do 1/2 normal ROM bridge. B ankle DF 2-/5. He is not able to product picker his feet in standing. He can product picker his heels somewhat but not controlled nor steady). Goal Progress: Not Progressing Goal 4:: Be able to walk with increase stride and increase heel to toe gait pattern with least restrictive device. Goal 5:: Be able to complete X 10 reps each leg seated opp arm and leg march consistetly in a row. Goal Progress: Progressing Plan: DC PT to HEP Discharge Comments: DC PT to HEP and PD class If there are questions or concerns regarding this patient's physical therapy, please feel free to call me at [phone]. Thank you for the referral of this patient. Sincerely, Lara Etienne, MPT Balance/Gait/Functional tests - Balance/Special Test Scores Functional Gait Assessment Score: 14 % Disability: 53.3400 Lower Extremity Functional Score: 22
== END 2021-08-15 10:06 | disposition home or self-care (01) ==
LOC: PT 08:30
PROVIDERS: PCP Family Medicine; Visit Provider Psychiatry & Neurology Neurology
DX: G20 Parkinson's disease (principal)
CPT/HCPCS: 97110; 97162; 97530

== ENCOUNTER → 2021-09-08 16:54 | Outpatient (CLI) | payer MEDICARE, BC, SELFPAY ==
[2021-09-08 17:20] LABS: CREATININE FINGERSTICK 0.7 mg/dL (0.70-1.30); EGFR FINGERSTICK > 60.0000 mL/min (>60)
--- NOTE | 2021-09-08 17:20 | MRI_ITS ---
EXAM: MR HEAD WITHOUT AND WITH INTRAVENOUS CONTRAST CLINICAL INDICATION: Mild cognitive impairment. Cavernous angioma. TECHNIQUE: Multiplanar and multisequence MR images of the brain were obtained without and with intravenous contrast. This report was created using [employer] report [employer] technology. CONTRAST: 14 mL of IV DOTAREM. COMPARISON: MRI brain with and without contrast 03/13/2021. 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 Minimal enhancing intramedullary vein behind the posterior wall of the right frontal lobe cavernoma is an incidental focal DVA (developmental venous anomaly). This is unchanged. No intra- or extra-axial hemorrhage. No evidence of acute infarct. No intracranial mass or mass effect. There is preservation of the webb/white matter interface. Posterior fossa structures are unremarkable. Ventricles are appropriate for age. No hydrocephalus. Basal cisterns are patent. SELLA: Unremarkable. Normal sella turcica, pituitary gland, infundibular stalk, optic chiasm and hypothalamus. AUDITORY SYSTEM: Unremarkable. The internal auditory canals are patent. BONES/JOINTS: Unremarkable. No discrete lytic or blastic abnormalities. SINUSES: Unremarkable as visualized. Clear. MASTOID AIR CELLS: Unremarkable as visualized. Clear. ORBITS: Unremarkable as visualized. Both globes, extraocular muscles, optic nerves and retrobulbar fat appear unremarkable. VASCULATURE: See above. MRI/Brain W/WO Contrast IMPRESSION: 1. No MRI evidence of acute or subacute ischemic infarct or acute intracranial abnormality. 2. 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 3. Small enhancing focal DVA behind the posterior wall of the right frontal lobe benign cavernoma is also unchanged. Electronically Signed: Eren Sibley MD at 11:55 EST , Service support ,
== END ==
PROVIDERS: PCP Family Medicine; Visit Provider Psychiatry & Neurology Neurology
DX: D18.02 Hemangioma of intracranial structures (principal); G31.84 Mild cognitive impairment of uncertain or unknown etiology
CPT/HCPCS: 70553; A9575

== ENCOUNTER → 2021-09-12 11:04 | Outpatient (CLI) | payer MEDICARE, BC, SELFPAY ==
[2021-09-12 12:53] LABS: Magnesium 1.6 mg/dL (1.6-2.6)
== END ==
PROVIDERS: PCP Family Medicine; Referring Provider Psychiatry & Neurology Neurology; Visit Provider Psychiatry & Neurology Neurology
DX: E83.42 Hypomagnesemia (principal); G57.90 Unspecified mononeuropathy of unspecified lower limb
CPT/HCPCS: 36415; 82784; 83735; 84165; 86334; 86335

== ENCOUNTER → 2021-09-15 15:07 | Outpatient (CLI) | payer MEDICARE, BC, SELFPAY ==
[2021-09-17 16:09] LABS: Alpha-1-Globulins 0.3 g/dL (0.0-0.4); Alpha-2-Globulins 0.9 g/dL (0.4-1.0); Gamma Globulin 1.1 g/dL (0.4-1.8); Immunoglobulin A 167 mg/dL (61-437); Immunoglobulin G 962 mg/dL (603-1613); Immunoglobulin M 319 mg/dL (20-172); PROEL- TOTAL PROTEIN 7.2 g/dL (6.0-8.5)
== END ==
PROVIDERS: PCP Family Medicine; Referring Provider Psychiatry & Neurology Neurology; Visit Provider Psychiatry & Neurology Neurology
DX: G57.90 Unspecified mononeuropathy of unspecified lower limb (principal)
CPT/HCPCS: 36415; 82784; 84165; 86334

== ENCOUNTER 2021-12-22 18:26 | Emergency (ER) | payer MEDICARE, BC, SELFPAY ==
[2021-12-22 18:27] VITALS: BP 133/95; PULSE 124; RESP 16; TEMP 36.7; O2SAT 96; BMI 20.1
--- NOTE | 2021-12-22 19:07 | ED.VIS.GI ---
HPI HPI - GI History of Present Illness Chief Complaint: Constipation Informant: patient Abdominal Pain/Flank Pain Onset: Days Context: Gradual Onset Current Severity: Mild Maximum Severity: Mild Worsened by: Nothing Relieved by: Nothing Nausea/Vomiting/Emesis GI Symptom: Negative for Nausea and Vomiting Diarrhea/Melena/Hematochezia GI Symptom: Negative for Diarrhea, Melena and Hematochezia Associated Symptoms Associated Symptoms: Negative for Dysuria, Frequency and Hematuria Narrative Narrative: 66-year-old male history of kidney stones recently diagnosed with ALS. Says the last 3 days been constipated with last bowel movement around Wednesday. He denies vomiting. He denies diarrhea or melena. He denies fever. Really denies a lot of pain just that he feels very full. He has had episodes of constipation before. Prior similar symptoms: Yes Recent Illness/Hospitalization: No PFSH PFS Medical History ALS (amyotrophic lateral sclerosis) Arthritis Cataracts, bilateral Dizziness High cholesterol History of kidney stones History of nephrolithotomy with removal of calculi Hypertension Tremor Home Medications amlodipine 5 mg tablet 5 mg PO DAILY tab 03/04/21 [History Last Taken Unknown] atorvastatin 40 mg tablet 40 mg PO DAILY tab 03/04/21 [History Last Taken Unknown] magnesium oxide 400 mg (241.3 mg magnesium) tablet 400 mg PO DAILY tab 03/04/21 [History Last Taken Unknown] meclizine 25 mg tablet 25 mg PO BID PRN #60 tab 03/04/21 [Rx Last Taken Unknown] Disability Placard #1 ea 07/10/21 [Rx Last Taken Unknown] Walker #1 ea 08/11/21 [Rx Last Taken Unknown] Allergy/AdvReac Type Severity Reaction Status Date / Time Penicillins Allergy Unknown Verified 12/22/21 18:28 Social History Smoking Status: Never smoker Electronic Cigarette Use: not used second hand exposure: No alcohol intake: current alcohol intake frequency: a few times a week Alcohol type: beer substance use type: does not use ROS ROS ED ROS Narrative Constipation. Review of Systems ROS Unobtainable: Denies due to encephalopathy Constitutional Constitutional ED: Denies fever(s) ENT ENT ED: Denies ear pain Cardiovascular Cardiovascular: Denies chest pain Respiratory/Chest Respiratory/Chest: Denies dyspnea Gastrointestinal Gastrointestinal: Reports constipation; Denies abdominal pain, diarrhea, nausea or vomiting Genitourinary Genitourinary ED: Denies dysuria Musculoskeletal Musculoskeletal: Denies myalgias Integumentary Denies rash Neurologic Neurologic: Denies headache(s) Psychiatric Psychiatric: Denies depression Endocrine Endocrinology: Denies polyuria Hematologic/Lymphatic Hematologic/Lymphatic: Denies easy bruising Allergic/Immunologic Allergic/Immunologic ED: Denies urticaria EXAM Physical Exam Narrative Exam Narrative: 68-year-old male no acute distress vital signs stable afebrile. H EENT exam unremarkable. Moist with memories. Neck nontender no lymphadenopathy. Lungs clear to auscultation. Heart regular rhythm rate about 110 no murmur. Abdomen soft nondistended normal bowel sounds no peritoneal signs. No pulsatile mass. No right upper or right lower quadrant tenderness. No signs of obstruction. Moving all 4 extremities. Nontender no edema. Back nontender. Neurologically is awake and alert moving all 4 extremities. Const Vital Signs: 12/22/21 18:27 Temperature 98.0 F Temperature Source Temporal Pulse Rate 124 H Respiratory Rate 16 Blood Pressure 133/95 H Blood Pressure Mean 107 Pulse Ox 96 Oxygen Delivery Method Room Air Positive well nourished and well developed; Negative for cachectic, contractures or unkempt General Appearance ED: well developed and NAD; Negative for unkempt, cachectic, contractures or pallor Nutritional Appearance: Negative for cachectic HEENT Reports moist mucous membranes normocephalic and atraumatic Eyes PERRL and EOMs intact bilaterally Neck no lymphadenopathy, supple and no JVD General: Negative for tenderness Resp normal respiratory effort and clear to auscultation bilaterally Auscultation: Negative for rales, rhonchi or wheezes Cardio regular rate, regular rhythm, S1 normal heart sound, S2 normal heart sound and no murmurs GI non-tender, non-distended and no masses Inspection: Negative for abdominal distention Auscultation: normoactive bowel sounds; Negative for hyperactive bowel sounds or hypoactive bowel sounds Palpation: soft; Negative for tender, guarding, rigid or rebound tenderness present Back/Spine no CVA tenderness General Back: Negative for CVA tenderness Extremity full ROM General Extremety ED: Negative for edema or tenderness General Extremity: Negative for edema Neuro moves all extremities Sensorium / Orientation: alert, oriented to person, oriented to place and oriented to time; Negative for orientation impaired, confused, lethargic or stuporous Motor Exam: strength 5/5 throughout Psych mental status grossly normal and thought process normal Appearance: Negative for unkempt Attitude: No agitated Mood & Affect: Negative for depressed or tearful Skin no wounds General Skin Exam: Negative for jaundice or pallor Lesions: no lesions Rashes: no rashes MDM MDM MDM Narrative Medical decision making narrative: 66-year-old complaining constipation. KUB will be obtained. Abdomen is benign. X-ray showed large rectal fecal retention. Discussed with patient options. He has tried magnesium at home and stool softeners did not get any relief. And would like to have a enema done here. Nursing staff did a soapsuds enema. Patient had a moderate bowel movement. He was feeling improved. Prior to me even discharging him his family was present in her room and took him home. Patient told nurses he was feeling fine. Radiography Diagnostic Testing: Clinical Impression(s) from Imaging Studies KUB X-Ray 12/22/21 19:20 IMPRESSION: Oral contrast visualized in the rectal vault during large volume of stool. This finding suggests constipation. Electronically Signed: Sven Martin MD at 19:43 EST , KUB, single view, abdominal film shows large volume of stool in the rectum. No obstruction. Single view interpreted by myself and the radiologist. Discharge Plan Triage Chief Complaint: Constipation ED Provider: Randall Constantino Dx/Rx/DC Orders Clinical Impression: Constipation, Family hx of ALS (amyotrophic lateral sclerosis) Instructions: ED Constipation (Adult) Prescriptions: No Action amlodipine 5 mg tablet 5 mg PO DAILY RF: 0 magnesium oxide 400 mg (241.3 mg magnesium) tablet 400 mg PO DAILY RF: 0 atorvastatin 40 mg tablet 40 mg PO DAILY RF: 0 meclizine 25 mg tablet 25 mg PO BID PRN (Reason: dizziness) Qty: 60 RF: 2 (DME) Disability Placard See Rx Instructions .Route .MEDSUPPLY Qty: 1 RF: 0 (DME) Walker See Rx Instructions .Route .MEDSUPPLY Qty: 1 RF: 0 Primary Care Provider: Kevin Solorzano Referrals: Kevin Solorzano MD [Primary Care Provider] - Disposition Disposition: Home, Self Care
--- NOTE | 2021-12-22 19:20 | RAD_ITS ---
EXAM: XR ABDOMEN, 1 VIEW CLINICAL INDICATION: constipation TECHNIQUE: Frontal supine view of the abdomen/pelvis. This report was created using [employer] report generation technology. COMPARISON: None. FINDINGS: LOWER THORAX: No acute pathology. GASTROINTESTINAL TRACT: Oral contrast visualized in the rectal vault during large volume of stool. This finding suggests constipation. ORGANS: Unremarkable as visualized. No organomegaly. No abnormal calcifications. BONES/JOINTS: Degenerative findings in the hips and lumbar spine. SOFT TISSUES: No acute pathology. RAD/Abdomen Single View IMPRESSION: Oral contrast visualized in the rectal vault during large volume of stool. This finding suggests constipation. Electronically Signed: Sven Martin MD at 19:43 EST ,
== END 2021-12-22 21:25 | disposition home or self-care (01) ==
PROVIDERS: Emergency Provider Emergency Medicine; PCP Family Medicine; Visit Provider Emergency Medicine
DX: K59.00 Constipation, unspecified (principal); E78.00 Pure hypercholesterolemia, unspecified; I10 Essential (primary) hypertension
CPT/HCPCS: 74018; 99284

== ENCOUNTER 2022-01-08 20:01 | Inpatient (IN) | payer MEDICARE, BC, SELFPAY ==
[2022-01-08 20:02] VITALS: BP 125/73; PULSE 138; RESP 26; TEMP 37.5; O2SAT 92; BMI 18.3
[2022-01-08 20:08] VITALS: O2SAT 92
--- NOTE | 2022-01-08 20:23 | ED.RN ---
PER DAUGHTER PATIENT RECENTLY DIAGNOSED WITH ALS. DAUGHTER STATES PATIENT HAD A BUNCH OF TESTS DONE YESTERDAY. SHE STATES SHE THINKS THAT WORE HIM OUT. DAUGHTER STATES HE HAD PULMONARY TESTING DONE WELL AND EVER SINCE THE TESTS HE HAS BEEN SHORT OF BREATH.
--- NOTE | 2022-01-08 20:36 | EKG12_ITS ---
Test Reason : SOB Blood Pressure : / mmHG Vent. Rate : 129 BPM Atrial Rate : 129 BPM P-R Int : 134 ms QRS Dur : 116 ms QT Int : 318 ms P-R-T Axes : 065 064 045 degrees QTc Int : 465 ms Sinus tachycardia Nonspecific ST abnormality Abnormal ECG Confirmed by CT CARRANZA, ASHLY ([id number]), offline editor EHSAN AMIN ([id number]) on 01/12/2022 10:55:26 A M Referred By: PL Confirmed By:AMIRAH FOFANA MD
[2022-01-08] MEDS: Ipratropium/Albuterol Sulfate 3 ML AMPUL.NEB INHALATION (20:42)
[2022-01-08] MEDS: 0.9% Normal Saline 1,000 ML 999 ML IV ×2 (20:46→23:03)
[2022-01-08 20:51] LABS: Absolute Lymphocyte Count 0.26 X10^3/uL (0.83-4.51); Absolute Neutrophil Count 16.5 X10^3/uL (2.0-7.7); Basophil# 0.03 X10^3/uL; Basophil% 0.2 % (0-1); Eosinophil# 0.18 X10^3/uL; Hemoglobin 14.6 g/dL (13.0-16.5); Lymphocyte # 0.26 X10^3/ul (0.83-4.51); Lymphocyte % 1.4 % (19-41); Mean Corpuscular Hgb 31.4 pg (27.0-32.0); Mean Corpuscular Volume 92.5 fL (80-94); Mean Platelet Vol. 10.3 fl (6.2-12.0); Monocyte# 1.23 X10^3/uL; Monocyte% 6.7 % (0-10); NRBC Flagged by Analyzer 0 % (0-5); Neutrophil # 16.47 X10^3/uL (2.7-7.7); Neutrophil % 89.8 % (47-70); POSITIVE DIFFERENTIAL YES; Platelet Count 270 K/mm3 (150-450); RBC Distribution Width CV 13.8 % (11.6-14.6); RBC Distribution Width SD 47.1 fl (35.1-43.9); Red Blood Count 4.65 M/mm3 (4.6-6.2); White Blood Count 18.3 K/mm3 (4.4-11.0)
--- NOTE | 2022-01-08 20:51 | ED.VIS.DYS ---
HPI History of Present Illness Chief Complaint: Shortness of Breath Informant: patient Narrative Narrative: Patient arrives with cough shortness of breath and hypoxia as well as fever. He states he has been having a slight cough for maybe a week with a little bit of shortness of breath but over the last day has gotten a lot worse. He is not bringing up any sputum. 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 He normally does not have breathing issues. He did just get a pneumonia shot yesterday. He is not having chest pain. He has had significantly decreased appetite although he has had no nausea and vomiting. He does feel dehydrated. EMS was called because he was so short of breath today. They had his saturations at 70% on room air and he is not normally on oxygen. [facility] Medical History ALS (amyotrophic lateral sclerosis) Arthritis Cataracts, bilateral Dizziness High cholesterol History of kidney stones History of nephrolithotomy with removal of calculi Hypertension Tremor Home Medications amlodipine 5 mg tablet 5 mg PO DAILY tab 03/04/21 [History Last Taken Unknown] atorvastatin 40 mg tablet 40 mg PO DAILY tab 03/04/21 [History Last Taken Unknown] magnesium oxide 400 mg (241.3 mg magnesium) tablet 400 mg PO DAILY tab 03/04/21 [History Last Taken Unknown] Disability Placard #1 ea 07/10/21 [Rx Last Taken Unknown] Walker #1 ea 08/11/21 [Rx Last Taken Unknown] riluzole 50 mg PO DAILY 01/08/22 [History Last Taken Unknown] Allergy/AdvReac Type Severity Reaction Status Date / Time Penicillins Allergy Unknown Verified 01/08/22 20:07 Social History Smoking Status: Never smoker Electronic Cigarette Use: not used second hand exposure: No alcohol intake: current alcohol intake frequency: a few times a week Alcohol type: beer substance use type: does not use ROS ROS ED Constitutional Constitutional ED: Reports chills and fever(s) Eyes Eyes: Denies blurry vision or diplopia ENT ENT ED: Reports other Details: Positive dry mouth. ; Denies rhinorrhea or sore throat Cardiovascular Cardiovascular: Denies chest pain Respiratory/Chest Respiratory/Chest: Reports cough and dyspnea; Denies sputum Gastrointestinal Gastrointestinal: Reports other Details: Patient has had decreased appetite. ; Denies abdominal pain, diarrhea, nausea or vomiting Genitourinary Genitourinary ED: Denies dysuria Musculoskeletal Musculoskeletal: Denies arthralgias or myalgias Integumentary Denies rash Neurologic Neurologic: Reports other Details: Patient has chronic weakness from Gisselle Gehrig's but there is not acute change in this. ; Denies headache(s), paresthesias or weakness Endocrine Endocrinology: Denies polydipsia or polyuria Hematologic/Lymphatic Hematologic/Lymphatic: Denies easy bleeding or easy bruising Allergic/Immunologic Allergic/Immunologic ED: Denies mouth swelling or urticaria EXAM Physical Exam Const Vital Signs: 01/08/22 20:02 01/08/22 20:08 01/08/22 20:59 Temperature 99.5 F H Temperature Source Oral Pulse Rate 138 H 125 H Respiratory Rate 26 H 25 H Respiratory Effort Short of Breath Respiratory Pattern Tachypnea Tachypnea Blood Pressure 125/73 H Blood Pressure Mean 90 Pulse Ox 92 Oxygen Delivery Method Nasal Cannula Nasal Cannula Oxygen Flow Rate (L/min) 4 4 01/08/22 22:16 01/08/22 23:04 Temperature Temperature Source Pulse Rate 128 H 129 H Respiratory Rate 18 24 H Respiratory Effort Respiratory Pattern Blood Pressure 124/67 H 120/80 Blood Pressure Mean 86 93 Pulse Ox 95 94 Oxygen Delivery Method Nasal Cannula Nasal Cannula Oxygen Flow Rate (L/min) 4 4 Positive well nourished and well developed Constitutional Narrative: Patient does look ill. He is awake alert. General Appearance ED: well developed HEENT Reports dry mucous membranes HEENT Narrative: Very dry mucous membranes Mouth ED: Yes dry mucous membranes Mouth: dry mucous membranes Eyes General Eye ED: Negative for pale conjunctiva Neck supple Resp normal respiratory effort Resp Narrative: Respiratory effort and base line laying in bed looks good. But he does have coarse breath sounds both sides a little bit more on the right. Cardio regular rhythm and no murmurs Cardio Narrative: Patient's heart rate is tachycardic but does appear to be regular. Rate: tachycardic GI non-tender and non-distended Palpation: soft Extremity Extremity Narrative: Overall muscle wasting more in the lower than upper extremities. Neuro oriented x3 Neuro Narrative: Patient is alert oriented. He is not confused or lethargic at all. He has almost no motion lower extremities. Motion and production roustabout strength is reasonably good upper extremities though. He has good strength. He still has wasting up Sensorium / Orientation: alert Psych mental status grossly normal Skin Rashes: no rashes MDM MDM MDM Narrative Medical decision making narrative: Patient's labs do show very high white count which is consistent with pneumonia. Electrolytes show no marked abnormalities. There are signs of dehydration with significantly elevated BUN to creatinine ratio. He is being hydrated. Heart rate is come down from about 1 38-1 24 at this time. Blood pressure is now up at 140 systolic. Lactate is negative. Troponin is negative. His x-ray shows some bibasilar atelectasis. However, it was not impressive for pneumonia especially considering the saturation that was recorded at 70% at home. His saturations on 4 L are 95 to 94% now. He is comfortable. He felt the respiratory treatment did help his breathing. But with the x-ray that is not markedly abnormal, tachycardia and hypoxia I did do CTA of the chest. CTA of the chest showed bibasilar pneumonia but no PE. Patient will be admitted. His heart rate is down a bit. His blood pressure is better. He is awake alert and feels and looks better. Lab Data Attestation: I reviewed the patient's lab results. Labs: Laboratory Results - last 24 hr 01/08/22 01/08/22 01/08/22 20:20 20:20 20:20 WBC 18.3 H RBC 4.65 Hgb 14.6 Hct 43.0 MCV 92.5 MCH 31.4 MCHC 34.0 RDW Std Deviation 47.1 H RDW Coeff of Paul 13.8 Plt Count 270 MPV 10.3 Immature Gran % (Auto) 0.900 Neut % (Auto) 89.8 H Lymph % (Auto) 1.4 L Pettis % (Auto) 6.7 Eos % (Auto) 1.0 Baso % (Auto) 0.2 Absolute Neuts (auto) 16.5 H Absolute Lymphs (auto) 0.26 L Nucleated RBC % 0 Differential Comment SCANNED Sodium 140 Potassium 4.2 Chloride 103 Carbon Dioxide 34.0 H Anion Gap 3 L BUN 27 H Creatinine 0.81 Estim Creat Clear Calc 68.47 Est GFR (MDRD) Af Amer 121 Est GFR (MDRD) Non-Af 100 BUN/Creatinine Ratio 33.2 H Glucose 182 H Lactic Acid 1.7 Calcium 9.8 Troponin I High Sens 9 Radiography Diagnostic Testing: Clinical Impression(s) from Imaging Studies Chest X-Ray 01/08/22 21:08 IMPRESSION: Bibasilar atelectasis. Electronically Signed: Carlos Alberto Barrera MD at 21:33 EDT , Chest CTA 01/08/22 22:17 IMPRESSION: No evidence of demonstrated pulmonary embolism or arterial dissection. There are bilateral basilar infiltrates. Electronically Signed: Luca Romo MD at 23:41 EDT , Discharge Plan Dx/Rx/DC Orders Clinical Impression: Community acquired pneumonia, Acute respiratory failure with hypoxia, Sepsis Disposition Disposition: Acute Care Hospital [facility] Discharge Date/Time: 01/08/22 21:41
[2022-01-08 20:59] VITALS: PULSE 125; RESP 25
[2022-01-08 20:59] LABS: Differential Indicated SCAN CRITERIA MET
[2022-01-08 21:07] LABS: Lactic Acid 1.7 mmol/L (0.4-1.9)
--- NOTE | 2022-01-08 21:08 | RAD_ITS ---
STUDY: X-RAY CHEST REASON FOR EXAM: Male, 66 years old. cough TECHNIQUE: Portable, upright, AP chest radiograph COMPARISON: None. FINDINGS: Bibasilar atelectasis with mild hypoinflation. There is no demonstrated pleural abnormality. Normal size heart. Normal mediastinum and alphonso. Normal visualized pulmonary arteries. Normal visualized aortic arch and descending thoracic aorta. There is no demonstrated abnormality of the visualized soft tissue structures of the upper abdomen. RAD/Chest 1 View (Portable) IMPRESSION: Bibasilar atelectasis. Electronically Signed: Carlos Alberto Barrera MD at 21:33 EDT ,
[2022-01-08 21:10] LABS: Anion Gap 3 (5-15); BUN 27 mg/dL (7-18); BUN/Creat Ratio 33.2 RATIO (10-20); Calcium,Total 9.8 mg/dL (8.5-10.1); Chloride 103 mmol/L (98-107); Creatinine, Serum 0.81 mg/dL (0.70-1.30); EST Glomerular Filtration Rate 100 mL/min (>60); Est Glom Filt Rate - Afr Amer 121 mL/min (>60); Estimated Creatinine Clearance 68.47 ml/min; Glucose 182 mg/dL (74-106); Potassium 4.2 mmol/L (3.5-5.1); Sodium Level 140 mmol/L (136-145); Troponin-I HS 9 pg/mL (3.0-78.0)
[2022-01-08 21:48] LABS: Differential Comment SCANNED
[2022-01-08 22:16] VITALS: BP 124/67; PULSE 128; RESP 18; O2SAT 95
--- NOTE | 2022-01-08 22:17 | CT_ITS ---
STUDY: CTA CHEST REASON FOR EXAM: Male, 66 years old. Tachycardia, hypoxia RADIATION DOSAGE (If Supplied By Facility): CTDIvol = ( 7.61 ) mGy, DLP = ( 227.53 ) mGycm TECHNIQUE: The examination was performed with the intravenous administration of IV 75mL Isovue-370. Post-processing of the angiographic images was performed, with multiplanar reformation and 3D reconstruction. Individualized dose optimization techniques were used for this CT. COMPARISON: None. FINDINGS: Normal enhancement of the main pulmonary artery and right and left pulmonary arteries. Normal enhancement of the bilateral peripheral pulmonary arteries. There is no demonstrated pulmonary embolism. Normal thoracic aorta and visualized great vessels. There is no demonstrated aortic dissection. Normal heart and pericardium. Normal mediastinum. Normal hilar regions. Normal visualized trachea and bronchi. The lungs are well expanded. There are bilateral basilar infiltrates.. Normal pleura. Normal chest wall structures. Normal osseous structures. Normal visualized upper abdomen. CT/CTA Chest W/WO Contrast IMPRESSION: No evidence of demonstrated pulmonary embolism or arterial dissection. There are bilateral basilar infiltrates. Electronically Signed: Luca Romo MD at 23:41 EDT ,
[2022-01-08] MEDS: Acetaminophen 325 MG Tablet 650 MG PO (23:03)
[2022-01-08 23:04] VITALS: BP 120/80; PULSE 129; RESP 24; O2SAT 94
[2022-01-09] VITALS (17 sets, daily range): BP systolic 114–181; BP diastolic 65–112; PULSE 105–131; RESP 12–30; TEMP 36.6–37.2; O2SAT 5–98; BMI 18.4
--- NOTE | 2022-01-09 00:02 | HP.PCM.HOS_ITS ---
HPI - General General Date of Admission: 01/08/22 HPI Narrative GORDY LEWIS, is a 66 M with a significant history of hyperlipidemia; hypertension and amyotrophic lateral sclerosis on riluzole who presents to emergency department with a 3-day history of progressively worsening shortness of breath. His symptoms started about 4 days ago with a cough predominantly dry but occasionally with white clear sputum. Associated with his symptom is fatigue. Reportedly patient went to ALS clinic the day before presentation and that made him fatigued. Patient had a fever with home temperature of 101.4 Fahrenheit. Further, patient has been nauseous and has poor appetite. Reportedly in route to the hospital paramedics found his oxygen saturation to be 70% on room air. Patient require supplemental oxygenation at the emergency department. [facility] Medical History ALS (amyotrophic lateral sclerosis) Arthritis Cataracts, bilateral Dizziness High cholesterol History of kidney stones History of nephrolithotomy with removal of calculi Hypertension Tremor Home Medications amlodipine 5 mg tablet 5 mg PO DAILY tab 03/04/21 [History Last Taken Unknown] atorvastatin 40 mg tablet 40 mg PO DAILY tab 03/04/21 [History Last Taken Unkno wn] magnesium oxide 400 mg (241.3 mg magnesium) tablet 400 mg PO DAILY tab 03/04/21 [History Last Taken Unknown] Disability Placard #1 ea 07/10/21 [Rx Last Taken Unknown] Walker #1 ea 08/11/21 [Rx Last Taken Unknown] riluzole 50 mg PO DAILY 01/08/22 [History Last Taken Unknown] Allergy/AdvReac Type Severity Reaction Status Date / Time Penicillins Allergy Unknown Verified 01/08/22 20:07 Family History Other Dementia Surgical History no surgical history no surgical history Social History Smoking Status: Never smoker Electronic Cigarette Use: not used second hand exposure: No alcohol intake: current alcohol intake frequency: a few times a week Alcohol type: beer substance use type: does not use ROS ROS Narrative Constitutional: Reports fever. Reports fatigue. Reports anorexia. Report loss of weight of about 40 pounds in 1 year. Eyes: Denies blurry vision, change in eye color, change in vision, discharge fro m eye(s), double vision, erythema, eye pain, loss of vision or other HEENT: Denies abnormal hearing, dysphagia, ear pain, epistaxis, headache(s), hearing loss, nasal congestion, nasal discharge, post nasal drip, sinus pressure, sore throat or other Cardiovascular: Denies chest pain or palpitations. Denies dyspnea on exertion, orthopnea and paroxysmal nocturnal dyspnea Respiratory/Chest: Reports cough predominantly dry but occasionally productive. Gastrointestinal: Reports nausea. Denies abdominal pain, coffee ground emesis, constipation, diarrhea, dyspepsia, hematemesis, hematochezia, loose stools, melena, vomiting or other Genitourinary: Denies burning urination, difficulty urinating, dysuria, hematuria, nocturia, urinary frequency, urinary hesitancy, urinary incontinence, urinary urgency or other Musculoskeletal: With muscle weakness in bilateral lower extremities. Denies ar thralgias, back pain, joint pain, joint stiffness, joint swelling, myalgias, neck pain or other Neurologic: Denies confusion, dizziness, focal weakness, headache(s), numbness, paresthesias, seizure-like activity, seizures, syncope, tingling. Psychiatric: Denies anxiety, depression, homicidal ideation, suicidal ideation or other Endocrinology: Denies change in body appearance, cold intolerance, excessive sweating, heat intolerance, polydipsia, polyuria or other Hematologic/Lymphatic: Denies anemia, easy bleeding, easy bruising, lymphadenopathy or other Integumentary: Denies rashes Allergic/Immunologic: Denies rhinitis, hives, eczema, or other Vital Signs Vital Signs Vital Signs: 01/08/22 20:02 01/08/22 20:08 01/08/22 20:59 Temperature 99.5 F H Temperature Source Oral Pulse Rate 138 H 125 H Respiratory Rate 26 H 25 H Respiratory Effort Short of Breath Respiratory Pattern Tachypnea Tachypnea Blood Pressure 125/73 H Blood Pressure Mean 90 Pulse Ox 92 Oxygen Delivery Method Nasal Cannula Nasal Cannula Oxygen Flow Rate (L/min) 4 4 01/08/22 22:16 01/08/22 23:04 Temperature Temperature Source Pulse Rate 128 H 129 H Respiratory Rate 18 24 H Respiratory Effort Respiratory Pattern Blood Pressure 124/67 H 120/80 Blood Pressure Mean 86 93 Pulse Ox 95 94 Oxygen Delivery Method Nasal Cannula Nasal Cannula Oxygen Flow Rate (L/min) 4 4 Weight Weight: 54.7 kg Body Mass Index (BMI) 18.3 Physical Exam Narrative Physical exam: General: Cachectic. Head: Normocephalic, atraumatic, no tenderness Eyes: PERRLA, EOMI ENT, no trauma, dry mucous membranes, no rhinorrhea Neck: Nontender, full range of motion, no spinal tenderness, deformities, step- off CVS: Tachycardia. S1-S2 present. No murmur, gallop or rub. Respiratory : Decreased breath sounds at bases. Chest wall nontender, no wheezing Abdomen: Soft, nontender, nondistended, normal bowel sounds, no masses : Deferred Back: Nontender, no CVA tenderness, no midline spinal tenderness, deformities, step-offs Extremities: Cachectic. no trauma Skin: Normal color, no trauma, abrasions Neuro: Alert, oriented, cranial nerves II through XII grossly intact. Strength in bilateral lower extremities 3 out of 5. Strength in bilateral upper extremity 5 out of 5. Psychiatry: Normal mood. Normal affect. Not depressed. Not anxious. Results Lab / Micro Data Result Diagrams: 01/08/22 20:20 01/08/22 20:20 Labs: Laboratory Results - last 24 hr 01/08/22 20:20: WBC 18.3 H, RBC 4.65, Hgb 14.6, Hct 43.0, MCV 92.5, MCH 31.4, MCHC 34.0, RDW Std Deviation 47.1 H, RDW Coeff of Paul 13.8, Plt Count 270, MPV 10.3, Immature Gran % (Auto) 0.900, Neut % (Auto) 89.8 H, Lymph % (Auto) 1.4 L, [place] % (Auto) 6.7, Eos % (Auto) 1.0, Baso % (Auto) 0.2, Absolute Neuts (auto) 16 .5 H, Absolute Lymphs (auto) 0.26 L, Nucleated RBC % 0, Differential Comment SCANNED 01/08/22 20:20: Sodium 140, Potassium 4.2, Chloride 103, Carbon Dioxide 34.0 H, Anion Gap 3 L, BUN 27 H, Creatinine 0.81, Estim Creat Clear Calc 68.47, Est GFR (MDRD) Af Amer 121, Est GFR (MDRD) Non-Af 100, BUN/Creatinine Ratio 33.2 H, Glucose 182 H, Calcium 9.8, Troponin I High Sens 9 01/08/22 20:20: Lactic Acid 1.7 Micro: Microbiology 01/08/22 20:55 Mucosa - Nasopharyngeal Influenza Types A,B Direct FA (PEREZ) - Final 01/08/22 20:55 Nasal Secretion SARS-CoV-2 Antigen (Rapid) - Final Radiology Impression Chest X-Ray 01/08/22 21:08 IMPRESSION: Bibasilar atelectasis. Electronically Signed: Carlos Alberto Barrera MD at 21:33 EDT , Chest CTA 01/08/22 22:17 IMPRESSION: No evidence of demonstrated pulmonary embolism or arterial dissection. There are bilateral basilar infiltrates. Electronically Signed: Luca Romo MD at 23:41 EDT , Assessment & Plan Assessment/Plan (1) Pneumonia: (2) Protein calorie malnutrition: PLAN: Pneumonia Gram-positive, or gram-negative. Patient meets SIRS criteria with tachycardia; tachypnea and leukocytosis. Review of CBC showed white count of 18.3. QSOFA: 1 (RR>=22) Lactic acid: 1.7 Blood culture ordered. Chest CT was visualized and independently interpreted and agree with alleges impression of bilateral basilar infiltrates Respiratory Gram stain and culture ordered. MRSA nasal screen ordered. Antibiotics; started on azithromycin and ceftriaxone and continued. Levaquin not ordered as patient will be at risk of tendinopathy. Mucinex ordered. Legionella antigen screen and Strep antigen ordered Severe protein calorie malnutrition Cachexia. BMI of 18.3. Reported patient has lost about 40 pounds in 1 year. Ensure Enlive ordered. Dietitian consult Dehydration Dry mucous membrane Review of BMP showed BUN of 27. Compared to previous records current BUN is highest as so far in hospital system. Gentle IV hydration. Trend BMP Hypertension Blood pressure is stable in regard to his age. Amlodipine continued. Trend blood pressures DVT prophylaxis Subcutaneous Lovenox ordered Charges/Coding Visit Charges Inpatient E&M: 62508 Init Hosp L3
[2022-01-09] MEDS: 0.9% Normal Saline 1,000 ML 75 ML IV ×2 (01:37→16:53)
[2022-01-09 03:52] LABS: M R Staph aureus DNA By PCR Negative (Negative); Probe Check PASS; Specimen Processing Control PASS
[2022-01-09 06:50] LABS: Absolute Lymphocyte Count 0.69 X10^3/uL (0.83-4.51); Absolute Neutrophil Count 17.4 X10^3/uL (2.0-7.7); Basophil# 0.03 X10^3/uL; Basophil% 0.2 % (0-1); Eosinophil# 0.05 X10^3/uL; Eosinophils% 0.3 % (0-5); Hematocrit 39.4 % (40-54); Hemoglobin 12.5 g/dL (13.0-16.5); Lymphocyte # 0.69 X10^3/ul (0.83-4.51); Lymphocyte % 3.5 % (19-41); Mean Corp Hgb Conc 31.7 g/dL (32-36); Mean Corpuscular Hgb 30.6 pg (27.0-32.0); Mean Corpuscular Volume 96.3 fL (80-94); Mean Platelet Vol. 10.3 fl (6.2-12.0); Monocyte# 1.63 X10^3/uL; Monocyte% 8.2 % (0-10); NRBC Flagged by Analyzer 0 % (0-5); Neutrophil # 17.43 X10^3/uL (2.7-7.7); Neutrophil % 87.3 % (47-70); POSITIVE DIFFERENTIAL YES; POSITIVE MORPHOLOGY YES; Platelet Count 227 K/mm3 (150-450); RBC Distribution Width SD 49.3 fl (35.1-43.9); Red Blood Count 4.09 M/mm3 (4.6-6.2); White Blood Count 19.9 K/mm3 (4.4-11.0)
[2022-01-09 06:59] LABS: Differential Indicated SCAN CRITERIA MET
--- NOTE | 2022-01-09 07:12 | RAD_ITS ---
STUDY: X-RAY - ABDOMEN/PELVIS REASON FOR EXAM: Male, 66 years old. colonic distention TECHNIQUE: Single AP view of the abdomen / pelvis. COMPARISON: 01/08/2022 FINDINGS: Excluded lung bases. Similar gaseous distention of small bowel and colon with fecal residue in the descending and rectosigmoid colon. There is no demonstrated free abdominal air. The visualized liver, spleen and kidneys are grossly normal in size and morphology. Excreted contrast in the urinary bladder from prior CTA chest yesterday. Normal visualized osseous structures. RAD/Abdomen Single View (Portable) IMPRESSION: Overall similar diffuse ileus as compared to partial visualization on CTA chest yesterday. Electronically Signed: Mervin Crespo MD ([place]oks) at 8:20 EDT ,
[2022-01-09 07:13] LABS: Anion Gap 3 (5-15); BUN 23 mg/dL (7-18); Calcium,Total 9.4 mg/dL (8.5-10.1); Chloride 108 mmol/L (98-107); Creatinine, Serum 0.79 mg/dL (0.70-1.30); EST Glomerular Filtration Rate 103 mL/min (>60); Est Glom Filt Rate - Afr Amer 125 mL/min (>60); Estimated Creatinine Clearance 55.76 ml/min; Glucose 105 mg/dL (74-106); Potassium 3.9 mmol/L (3.5-5.1); Sodium Level 141 mmol/L (136-145)
[2022-01-09 07:21] LABS: Differential Comment S
[2022-01-09] MEDS: Enoxaparin 40 MG/0.4 ML Syringe SC (08:32)
--- NOTE | 2022-01-09 09:42 | CASEMGMT ---
Addendum entered by Marisela Sol 01/09/22 15:03: JUAN GREGORIO in to pt room. Pt lying in bed with O2 on. States he is very tired, low energy. Pt and dtr have had a chance to discuss dc plans but would like to hear all of the options again when pt has more energy. JUAN GREGORIO to follow. Addendum entered by Marisela Sol 01/09/22 11:29: TC to pt dtr and discussed dc planning with her. She states she has been looking into private duty services but cannot find availability for staffing. Discussed skilled home health care. She states that her and her work all day and she wants to make sure pt has the care he needs. She states her grandfather had a stay at a [facility] after he had pneumonia and is wondering if this is an option. Made her aware that PT and ST have not worked with him yet, but we can see the recommendation. She also wants to speak with the patient about this. She states she will be here in about 5-10 minutes to see pt. Addendum entered by Marisela Sol 01/09/22 10:37: JUAN GREGORIO back into pt room. Patient was provided a list of HHC/DME providers including quality and resource use data and consistent with the patient?s preferred geographic region, medical needs, and insurance network. Pt chose [facility] for DME but would like this JUAN GREGORIO to contact his dtr regarding the HHC as he does not know who she has called herself already. He would like her to make the decision for HHC for him. He has designated her as his person to discuss dc plans with. Original Note: JUAN GREGORIO Assessment: Face to Face with pt for initial transition planning/care coordination assessment. JUAN GREGORIO introduced self and role at [facility], pt voices understanding and consents to assessment. Pt is A/O x4 and answers all questions appropriately at this time. Pt sitting up in chair with O2 on in no distress. Care providers, pharmacy, and demographics verified/updated. Admitting Dx: PNA PCP:[facility], pt states he has been seeing a SEC REPORTING CONSULTANT there since has left. Specialists:neuro at [facility], pt can not remember the name Preferred Pharmacy: [facility] [place] Insurance: Fili SEWELL Prescription Benefit: yes LW/HPOA: Pt denies having a LW/DPOA and denies need for info regarding AD. LNOK: Marilee Conley, dtr Living Arrangements: Pt lives with dtr and son in law and grandson in a two story house with 3 steps to enter without a rail. Pt reports his kg or dtr wheel him in to the house. Pt reports he is mostly I in ADL's and his dtr assists him with bathing. Pt just moved in with dtr in the last 2wks although is still keeping his home. She has moved back to [place] from [place], [place]. Transportation: Pt does not drive. Dtr transports him to medical appts. DME/HHC/SNF: Pt has grab bars in the bathroom, FWW, w/c and a straight cane at home. Pt denies hx of HHC although states his dtr has been trying to get it for personal care. Discussed that this type of care is normally private pay. Made him aware that [place] and [place]. Pt is interested in this. Pt denies SNF stays. Pt states no concerns with going home at time of dc. Pt states no further concerns/needs. CM to follow. Advised pt to ask CM if any further question/concerns/needs arise, voices understanding. Pt Goal: Home with HHC Plan: Home with HHC
--- NOTE | 2022-01-09 11:40 | PCM.PN.HOSP ---
Subjective Subjective Diagnosed with ALS 6 weeks, previously thought to be Parkinson's, then MS. Started on riluzole 2 weeks ago. No abdominal pain. Objective Data Objective Data Vital Signs: Vital Signs Temp Pulse Resp BP Pulse Ox 36.6 C 105 H 18 120/73 5 01/09/22 08:21 01/09/22 08:21 01/09/22 08:21 01/09/22 08:21 01/09/22 09:15 Oxygen Flow Rate (L/min) 5 Oxygen Delivery Method Nasal Cannula Weight: 55 kg Body Mass Index (BMI) 18.4 Intake & Output: Intake and Output for Last 24 Hours 01/07/22 01/08/22 01/09/22 23:59 23:59 23:59 Intake Total 1305 / 1305 1000 / 1000 Balance 1305 / 1305 1000 / 1000 Lab / Micro Data Result Diagrams: 01/09/22 05:35 01/09/22 05:35 Labs: Laboratory Results - last 24 hr 01/08/22 20:20: WBC 18.3 H, RBC 4.65, Hgb 14.6, Hct 43.0, MCV 92.5, MCH 31.4, MCHC 34.0, RDW Std Deviation 47.1 H, RDW Coeff of Paul 13.8, Plt Count 270, MPV 10.3, Immature Gran % (Auto) 0.900, Neut % (Auto) 89.8 H, Lymph % (Auto) 1.4 L, Brooks % (Auto) 6.7, Eos % (Auto) 1.0, Baso % (Auto) 0.2, Absolute Neuts (auto) 16.5 H, Absolute Lymphs (auto) 0.26 L, Nucleated RBC % 0, Differential Comment SCANNED 01/08/22 20:20: Sodium 140, Potassium 4.2, Chloride 103, Carbon Dioxide 34.0 H, Anion Gap 3 L, BUN 27 H, Creatinine 0.81, Estim Creat Clear Calc 68.47, Est GFR (MDRD) Af Amer 121, Est GFR (MDRD) Non-Af 100, BUN/Creatinine Ratio 33.2 H, Glucose 182 H, Calcium 9.8, Troponin I High Sens 9 01/08/22 20:20: Lactic Acid 1.7 01/09/22 02:06: MRSA (PCR) Negative 01/09/22 05:35: WBC 19.9 H, RBC 4.09 L, Hgb 12.5 L, Hct 39.4 L, MCV 96.3 H, MCH 30.6, MCHC 31.7 L D, RDW Std Deviation 49.3 H, RDW Coeff of Paul 14.0, Plt Count 227, MPV 10.3, Immature Gran % (Auto) 0.500, Neut % (Auto) 87.3 H, Lymph % (Auto) 3.5 L, Brooks % (Auto) 8.2, Eos % (Auto) 0.3, Baso % (Auto) 0.2, Absolute Neuts (auto) 17.4 H, Absolute Lymphs (auto) 0.69 L, Nucleated RBC % 0, Differential Comment S, Diff Path Review February01/09/22 05:35: Sodium 141, Potassium 3.9, Chloride 108 H, Carbon Dioxide 30.0, Anion Gap 3 L, BUN 23 H, Creatinine 0.79, Estim Creat Clear Calc 55.76, Est GFR (MDRD) Af Amer 125, Est GFR (MDRD) Non-Af 103, BUN/Creatinine Ratio 29.0 H, Glucose 105, Calcium 9.4 Micro: Microbiology 01/09/22 10:05 Urine, Random Streptococcus pneumoniae Antigen (M - Final 01/09/22 10:05 Urine, Random Legionella Antigen - Final 01/08/22 20:55 Mucosa - Nasopharyngeal Influenza Types A,B Direct FA (PEREZ) - Final 01/08/22 20:55 Nasal Secretion SARS-CoV-2 Antigen (Rapid) - Final Radiography Diagnostic Testing: Radiology Impression Chest X-Ray 01/08/22 21:08 IMPRESSION: Bibasilar atelectasis. Electronically Signed: Carlos Alberto Barrera MD at 21:33 EDT , Chest CTA 01/08/22 22:17 IMPRESSION: No evidence of demonstrated pulmonary embolism or arterial dissection. There are bilateral basilar infiltrates. Electronically Signed: Luca Romo MD at 23:41 EDT , KUB X-Ray 01/09/22 07:12 IMPRESSION: Overall similar diffuse ileus as compared to partial visualization on CTA chest yesterday. Electronically Signed: Mervin Crespo MD (Brooks) at 8:20 EDT Reading Location ID and State: [address] [place] [address] , Service support , Physical Exam Const alert and no apparent distress HEENT Head and Scalp: normocephalic Eyes Eyes Narrative: amblyopia. no icterus. Resp normal respiratory effort and no retractions Resp Narrative: bibasilar crackles Cardio regular rate, regular rhythm, S1 normal heart sound and S2 normal heart sound GI normal to inspection, nondistended, normoactive bowel sounds, soft to palpation, non-tender and non-distended Extremity normal to inspection Assessment & Plan Assessment/Plan (1) Protein calorie malnutrition: QUALIFIERS: Protein-calorie malnutrition severity: severe Qualified Code(s): E43 - Unspecified severe protein-calorie malnutrition (2) Pneumonia: QUALIFIERS: Pneumonia type: due to unspecified organism Laterality: bilateral Lung location: lower lobe of lung Qualified Code(s): J18.9 - Pneumonia, unspecified organism (3) Acute respiratory failure with hypoxia: (4) Ileus: PLAN: 1. pneumonia Sepsis ruled out on Azithromycin and CTX. pulmonary toilet 2. Ileus NPO supportive mgmt 3. Severe protein calorie malnutrition exhibition carver consult 4. ALS complicates care on riluzole 5. VTE prophylaxis: LMWH. Charges/Coding Visit Charges Inpatient E&M: 52607 Subs Hosp L2
[2022-01-09] MEDS: Magnesium Chloride 64 MG Delay Rel.Tablet 128 MG PO (12:22)
[2022-01-09] MEDS: guaiFENesin 1,200 MG Tablet 1200 MG PO ×2 (12:22→21:42)
[2022-01-09] MEDS: amLODIPine 5 MG Tablet PO (12:23)
[2022-01-09] MEDS: Albuterol 2.5 MG/3 ML VIAL.NEB. INHALATION ×2 (14:10→20:08)
--- NOTE | 2022-01-09 14:23 | CASEMGMT ---
RADHA reviewed patient's chart due to his new diagnosis of ALS. SW met with patient and his daughter was also present. RADHA introduced self and role at [facility]. SW asked patient how he was doing and he said not so great. Patient politely told RADHA he does not feel like talking right now. SW told patient that is fine. SW certainly does not want to cause him anymore stress. Patient and his daughter thanked RADHA for checking in with them. RADHA passed along this information to MS3 RADHA. Mary [address] ASSOCIATE PROFESSOR OF RADIOLOGY SAMUEL
[2022-01-09] MEDS: LORazepam 2 MG/ML Bottle 0.5 MG PO ×2 (15:14→21:44)
[2022-01-09] MEDS: 0.9% Saline Lock 10 ML Syringe IV (21:42)
[2022-01-09] MEDS: Atorvastatin Calcium 40 MG Tablet PO (21:43)
[2022-01-09] MEDS: Ceftriaxone 1 GM/50 ML BAG IV (21:43)
--- NOTE | 2022-01-09 23:30 | RAD_ITS ---
EXAM: XR CHEST, 1 VIEW : 1955 CLINICAL INDICATION: shortness of breath TECHNIQUE: Frontal view of the chest. This report was created using [employer] report generation technology. COMPARISON: 01/08/22 FINDINGS: LUNGS AND PLEURAL SPACES: Bilateral lower lobe airspace disease. No pneumothorax. No effusion. HEART: Unremarkable. Cardiac silhouette not enlarged. MEDIASTINUM: Central airways and mediastinal contour are unremarkable. BONES/JOINTS: Unremarkable. SOFT TISSUES: Unremarkable. RAD/Chest 1 View (Portable) IMPRESSION: Bilateral lower lobe airspace disease. Findings may indicate pneumonia. at 0147 Reported and signed by: Sven Roe MD Electronically Signed: Sven Roe MD at 1:46 EDT ,
--- NOTE | 2022-01-09 23:32 | PCM.PN.BLA ---
Progress Note Called to the bedside because of increasing respiratory distress. At baseline patient reports that increasing he is having he is not having enough oxygen. Patient was on a nonrebreather mask and nasal: Oxygen at the time of examination. Physical examination Tachypnea. Decreased lung sounds at right base. Impression Acute hypoxemic respiratory failure Patient currently on ceftriaxone and azithromycin. He has allergy to penicillin. Reportedly he breaks in hives with penicillin. Chest x-ray ordered. Review of records shows negative MRSA nares on his admission. Will broaden antibiotics. Stop ceftriaxone. Start cefepime to cater for Pseudomonas. Start Flagyl to care for anaerobes. Clindamycin ordered due to high risk of C. difficile. BiPAP ordered. Change status from message to MedSurg with telemetry.
[2022-01-10] VITALS (21 sets, daily range): BP systolic 96–126; BP diastolic 65–86; PULSE 92–122; RESP 12–35; TEMP 36.6–37.6; O2SAT 92–99
[2022-01-10] MEDS: metroNIDAZOLE 500 MG/100 ML BAG 100 MG IV ×4 (00:01→21:27)
[2022-01-10 00:06] LABS: Base Excess 3 mmol/L (-2 to +2); Bicarbonate 29.2 mmol/L (22-26); Blood Gas Specimen Type ART; FI02 100; O2 Delivery Device BiPAP; PEEP 8; PO2 95 mmHG (75-100); PS 7; SITE R Radial; SO2 97 % (95-99); Total Carbon Dioxide 31 mmol/L; pCO2 57.1 mmHg (35-45); pH 7.32 (7.35-7.45)
[2022-01-10] MEDS: 0.9% Normal Saline 1,000 ML 75 ML IV (05:30)
--- NOTE | 2022-01-10 08:57 | RAD_ITS ---
STUDY: X-RAY - ABDOMEN/PELVIS REASON FOR EXAM: Male, 66 years old. Ileus follow up TECHNIQUE: Two AP supine views of the abdomen and pelvis. COMPARISON: January 09, 2022, imaging FINDINGS: The lung bases are mostly out of the [id number]. There is a gassy distended appearance of most of the colon. There is a column of stool within the sigmoid colon to the rectum compatible with fecal impaction constipation. There is an unremarkable bowel gas pattern. There is no demonstrated free abdominal air. The liver silhouette appears normal. Splenic kidneys are obscured. Normal soft tissue structures. There are diffuse degenerative changes of the visualized lumbar spine. RAD/Abdomen Single View (Portable) IMPRESSION: Fecal impaction from the sigmoid to the rectum, constipation causing gassy gas-filled loops of colon and small bowel. Electronically Signed: Radha Dempsey MD at 15:45 EDT ,
--- NOTE | 2022-01-10 08:57 | PCM.PN.HOSP ---
Subjective Subjective Events reviewed. Breathing ok with BiPAP. Objective Data Objective Data Vital Signs: Vital Signs Temp Pulse Resp BP Pulse Ox 36.7 C 111 H 26 H 122/76 H 98 01/10/22 07:25 01/10/22 08:33 01/10/22 08:33 01/10/22 07:25 01/10/22 08:33 Oxygen Flow Rate (L/min) 5 Oxygen Delivery Method Bi-pap Weight: 55 kg Body Mass Index (BMI) 18.4 Intake & Output: Intake and Output for Last 24 Hours 01/08/22 01/09/22 01/10/22 23:59 23:59 23:59 Intake Total 1305 / 1305 2305 / 2315 1256.25 / 1256.25 Balance 1305 / 1305 2305 / 2315 1256.25 / 1256.25 Medical Nutrition Assessment Dietitian: Malnutrition Criteria Met Start: 01/09/22 13:38 Freq: Status: Active Protocol: Document 01/09/22 13:38 (Rec: 01/09/22 13:38 [id number]) Nutrition Malnutrition Evidence of Malnutrition Exists Yes Malnutrition (severe): Chronic Evidenced By Suboptimal Energy Intake ( Severe),Weight Loss (Severe), Physical Changes (Severe) Clinical Problem Chronic Disease or Condition Related Malnutrition Etiology severe, chronic malnutrition r /t inadequate energy intake d/ t weakness, swallowing difficulty Signs/Symptoms as evidenced by unintentional wt loss of 38.7#/24% x 1 year; estimated PO intake meeting < 75% of estimated energy needs >3 months; severe muscle wasting/fat loss evident per physical exam in clavicles, temples, upper extremities, orbital area. Status Active Problem Recommendation Dietitian Recommendations/Changes continue regular diet, texture /consistency modifications per PRODUCT DESIGNER; will add 4oz ensure w/ meals- continue 4oz 4x/day w/ medpass. Will try ensure pudding at meals. Lab / Micro Data Result Diagrams: 01/09/22 05:35 01/09/22 05:35 Micro: Microbiology 01/09/22 10:05 Urine, Random Streptococcus pneumoniae Antigen (M - Final 01/09/22 10:05 Urine, Random Legionella Antigen - Final 01/08/22 20:55 Mucosa - Nasopharyngeal Influenza Types A,B Direct FA (PEREZ) - Final 01/08/22 20:55 Nasal Secretion SARS-CoV-2 Antigen (Rapid) - Final ABG Data ABG results: ABG 01/09/22 23:57 Specimen Type ART Sample Site R Radial pH 7.32 L Bicarbonate Actual 29.2 H Total CO2 31 Base Excess 3 H O2 Saturation 97 O2 % 100 ABG pCO2 57.1 H ABG pO2 95 Mp Test N/A O2 Delivery Device BiPAP POC PEEP 8 POC Pressure Suppt 7 Clinical Comments 15*8 rate 12 Radiography Diagnostic Testing: Radiology Impression Chest X-Ray 01/09/22 23:30 IMPRESSION: Bilateral lower lobe airspace disease. Findings may indicate pneumonia. at 0147 Reported and signed by: Sven Roe MD Electronically Signed: Sven Roe MD at 1:46 EDT , Physical Exam Const alert and no apparent distress Constitutional Narrative: on BiPAP. cachexictic. HEENT HEENT Narrative: temporal wasting. Resp normal respiratory effort and no retractions Resp Narrative: Worse breath sounds bilaterally Cardio regular rate, regular rhythm, S1 normal heart sound and S2 normal heart sound GI normal to inspection, nondistended, normoactive bowel sounds, soft to palpation and non-tender Skin no rashes or lesions noted Neuro Sensorium / Orientation: awake and alert Psych Psych Narrative: flat affect Assessment & Plan Assessment/Plan (1) Protein calorie malnutrition: QUALIFIERS: Protein-calorie malnutrition severity: severe Qualified Code(s): E43 - Unspecified severe protein-calorie malnutrition (2) Pneumonia: QUALIFIERS: Pneumonia type: due to unspecified organism Laterality: bilateral Lung location: lower lobe of lung Qualified Code(s): J18.9 - Pneumonia, unspecified organism (3) Acute respiratory failure with hypoxia: (4) Ileus: PLAN: 1. acute hypoxic respiratory failure Likely multifactorial due to pneumonia, aspiration, ALS and possibly also with his ileus Improved Hopefully we can wean off BiPAP today Pulmonary toilet 2. Pneumonia Sepsis ruled out Aspiration Overnight, azithromycin and CTX was changed to azithromycin, metronidazole and cefepime Reviewing the patient's chest x-ray does not appear to be any significant worsening of his infiltrate Will DC the azithromycin 3. Ileus Patient had profound ileus noted on his chest x-ray from yesterday but was not commented on by the radiologist. Will recheck an abdominal x-ray is clinically he seems to be improving today. Will advance diet, to pur?ed and honey thickened liquids. 4. Severe protein calorie malnutrition complicates care and recovery assisted living care manager consult 5. ALS complicates care on riluzole 6. VTE prophylaxis: LMWH. Advance care planning: Spent an additional 30 minutes in which I discussed with the patient and his daughter, Marilee, verified CODE STATUS that is DNR Comfort Care arrest no intubation. Also verified that patient does not want any artificial means of nutrition including PEG tube, Dobbhoff. He is okay with NG tube for decompression purposes if necessary. Discussed with him about palliative care which she is not been established with and after discussing with him about the purpose of palliative care and regards to helping with symptoms he is agreeable to speaking with him. He also understands the palliative care can be transitioned over to hospice when the time is appropriate. Discussed with Marilee today about all of this with the patient's permission. Informed them both that we will let him eat on a modified diet understanding that the risk of aspiration is still present given his ALS. All questions were answered. Charges/Coding Visit Charges Inpatient E&M: 95346 Subs Hosp L3 Procedures Hospitalists Procedures: 53518 Advncd Care Plan 30 Min
--- NOTE | 2022-01-10 09:28 | CASEMGMT ---
JUAN GREGORIO updated by [facility] charge that hospitalist requesting palliative consult for ALS. JUAN GREGORIO completed screening tool and sent referral to [facility].
[2022-01-10] MEDS: Enoxaparin 40 MG/0.4 ML Syringe SC (12:23)
[2022-01-10] MEDS: amLODIPine 5 MG Tablet PO (13:47)
--- NOTE | 2022-01-10 14:10 | CASEMGMT ---
SW Note Referral Source: [facility] SW Referral Reason: Support and discharge planning SW met with patient and his daughter and son in law. Patient had recently been diagnosed with ALS. He stated through hand gestures that he was so so as he was on bipap. SW advised that a referral had been made to palliative care for patient. Daughter said that she was not sure what palliative care is and thus this typewriter ribbon winder educated on palliative care. Daughter said that they have not determined a discharge plan for patient yet. Daughter said that she and patient talked this morning about hospice as patient's father was in hospice and it was a positive experience. SW offered that if they need additional information from Hospice to let staff know and daughter and son in law verbalized understanding. Emotional support provided. Plan: TO be determined. Emotional support provided. Ariana BOUCHER
[2022-01-10] MEDS: LORazepam 2 MG/ML Bottle 0.5 MG PO (15:48)
[2022-01-10] MEDS: 0.9% Saline Lock 10 ML Syringe IV (16:41)
[2022-01-10] MEDS: Furosemide 20 MG/2 ML VIAL IV (16:41)
--- NOTE | 2022-01-10 16:45 | RAD_ITS ---
EXAM: XR CHEST, 1 VIEW : 1955 CLINICAL INDICATION: SOB TECHNIQUE: Frontal view of the chest. This report was created using [employer] report generation technology. COMPARISON: 01/09/2022 FINDINGS: LUNGS AND PLEURAL SPACES: There is minimal airspace disease at the lung bases. There are trace bilateral effusions. No pneumothorax. HEART: Unremarkable. Cardiac silhouette not enlarged. MEDIASTINUM: Central airways and mediastinal contour are unremarkable. BONES/JOINTS: Unremarkable. SOFT TISSUES: Unremarkable. RAD/Chest 1 View (Portable) IMPRESSION: Increasing bibasilar airspace disease which may represent atelectasis or pneumonia. There are trace bilateral effusions. at 1713 Reported and signed by: Chris Henley MD Electronically Signed: Chris Henley MD at 17:12 EDT ,
[2022-01-10] MEDS: Atorvastatin Calcium 40 MG Tablet PO (21:32)
[2022-01-10] MEDS: guaiFENesin 1,200 MG Tablet 1200 MG PO (21:32)
[2022-01-10] MEDS: LORazepam 2 MG/ML Bottle 0.5 MG SL (21:37)
[2022-01-11] VITALS (24 sets, daily range): BP systolic 105–160; BP diastolic 57–90; PULSE 72–135; RESP 12–35; TEMP 36.3–37.1; O2SAT 92–99
[2022-01-11] MEDS: Albuterol 2.5 MG/3 ML VIAL.NEB. INHALATION ×3 (01:30→15:48)
[2022-01-11] MEDS: metroNIDAZOLE 500 MG/100 ML BAG 100 MG IV ×3 (05:48→21:50)
[2022-01-11 05:55] LABS: Absolute Lymphocyte Count 0.75 X10^3/uL (0.83-4.51); Absolute Neutrophil Count 15.7 X10^3/uL (2.0-7.7); Basophil# 0.04 X10^3/uL; Basophil% 0.2 % (0-1); Hemoglobin 11.2 g/dL (13.0-16.5); Lymphocyte # 0.75 X10^3/ul (0.83-4.51); Lymphocyte % 4.3 % (19-41); Mean Corp Hgb Conc 31.1 g/dL (32-36); Mean Corpuscular Hgb 31.1 pg (27.0-32.0); Monocyte% 5.7 % (0-10); NRBC Flagged by Analyzer 0 % (0-5); Neutrophil # 15.67 X10^3/uL (2.7-7.7); Neutrophil % 89.1 % (47-70); Platelet Count 259 K/mm3 (150-450); RBC Distribution Width CV 13.7 % (11.6-14.6); RBC Distribution Width SD 50.6 fl (35.1-43.9); White Blood Count 17.6 K/mm3 (4.4-11.0)
--- NOTE | 2022-01-11 05:55 | RAD_ITS ---
STUDY: X-RAY - ABDOMEN/PELVIS REASON FOR EXAM: Male, 66 years old. ileus TECHNIQUE: Single AP view of the abdomen / pelvis. COMPARISON: 01/10/2022 FINDINGS: Normal visualized lung bases. There is no change in the large amount of stool within the rectum and moderate dilatation of the colon suggestive of fecal impaction. The visualized liver, spleen and kidneys are grossly normal in size and morphology. Normal soft tissue structures. Normal visualized osseous structures. RAD/Abdomen Single View (Portable) IMPRESSION: No change in suspected fecal impaction. Electronically Signed: Shree Choi MD at 6:44 EDT ,
[2022-01-11 06:21] LABS: Anion Gap 4 (5-15); BUN 26 mg/dL (7-18); BUN/Creat Ratio 41.6 RATIO (10-20); Calcium,Total 9.1 mg/dL (8.5-10.1); Chloride 110 mmol/L (98-107); Creatinine, Serum 0.62 mg/dL (0.70-1.30); EST Glomerular Filtration Rate 136 mL/min (>60); Est Glom Filt Rate - Afr Amer 165 mL/min (>60); Estimated Creatinine Clearance 55.76 ml/min; Glucose 87 mg/dL (74-106); Potassium 3.3 mmol/L (3.5-5.1); Sodium Level 145 mmol/L (136-145)
--- NOTE | 2022-01-11 10:12 | PN.HOSP_ITS ---
Subjective Subjective Patient seen and examined. He was on BIPAP. He is still short of breath and couldnt tolerate being off BIPAP for a short period. He denied any nausea, vomiting, fever or chills. Review of systems was otherwise negative. He is tachypneic this morning. Potassium is 3.3. Objective Data Objective Data Vital Signs: Vital Signs Temp Pulse Resp BP Pulse Ox 98.1 F 94 21 H 115/66 96 01/11/22 07:30 01/11/22 07:30 01/11/22 07:30 01/11/22 07:30 01/11/22 07:30 Oxygen Flow Rate (L/min) 5 Oxygen Delivery Method Bi-pap Weight: 121 lb 4.068 oz Body Mass Index (BMI) 18.4 Intake & Output: Intake and Output for Last 24 Hours 01/09/22 01/10/22 01/11/22 23:59 23:59 23:59 Intake Total 2305 / 2315 2176.25 / 2176.25 580 / 580 Output Total 1400 / 2500 1750 / 1750 Balance 2305 / 2315 776.25 / -323.75 -1170 / -1170 Medical Nutrition Assessment Dietitian: Malnutrition Criteria Met Start: 01/09/22 13:38 Freq: Status: Active Protocol: Document 01/09/22 13:38 (Rec: 01/09/22 13:38 [id number]) Nutrition Malnutrition Evidence of Malnutrition Exists Yes Malnutrition (severe): Chronic Evidenced By Suboptimal Energy Intake ( Severe),Weight Loss (Severe), Physical Changes (Severe) Clinical Problem Chronic Disease or Condition Related Malnutrition Etiology severe, chronic malnutrition r /t inadequate energy intake d/ t weakness, swallowing difficulty Signs/Symptoms as evidenced by unintentional wt loss of 38.7#/24% x 1 year; estimated PO intake meeting < 75% of estimated energy needs >3 months; severe muscle wasting/fat loss evident per physical exam in clavicles, temples, upper extremities, orbital area. Status Active Problem Recommendation Dietitian Recommendations/Changes continue regular diet, texture /consistency modifications per INVESTMENT BANKING MANAGER; will add 4oz ensure w/ meals- continue 4oz 4x/day w/ medpass. Will try ensure pudding at meals. Lab / Micro Data Result Diagrams: 01/11/22 05:43 01/11/22 05:43 Labs: Laboratory Results - last 24 hr 01/11/22 05:43: WBC 17.6 H, RBC 3.60 L, Hgb 11.2 L, Hct 36.0 L, MCV 100.0 H, MCH 31.1, MCHC 31.1 L, RDW Std Deviation 50.6 H, RDW Coeff of Paul 13.7, Plt Count 259, MPV 10.0, Immature Gran % (Auto) 0.700, Neut % (Auto) 89.1 H, Lymph % (Auto) 4.3 L, [place] % (Auto) 5.7, Eos % (Auto) 0.0, Baso % (Auto) 0.2, Absolute Neuts (auto) 15.7 H, Absolute Lymphs (auto) 0.75 L, Nucleated RBC % 0 01/11/22 05:43: Sodium 145, Potassium 3.3 L, Chloride 110 H, Carbon Dioxide 31.0, Anion Gap 4 L, BUN 26 H, Creatinine 0.62 L, Estim Creat Clear Calc 55.76, Est GFR (MDRD) Af Amer 165, Est GFR (MDRD) Non-Af 136, BUN/Creatinine Ratio 41.6 H, Glucose 87, Calcium 9.1 Micro: Microbiology 01/08/22 20:45 Blood Culture (Wb) #2 - Left Forearm Blood Culture - Preliminary No growth in 48 hours. 01/08/22 20:20 Blood Culture (Wb) - Anticubital Left Blood Culture - Preliminary No growth in 48 hours. 01/09/22 10:05 Urine, Random Streptococcus pneumoniae Antigen (M - Final 01/09/22 10:05 Urine, Random Legionella Antigen - Final 01/08/22 20:55 Mucosa - Nasopharyngeal Influenza Types A,B Direct FA (PEREZ) - Final 01/08/22 20:55 Nasal Secretion SARS-CoV-2 Antigen (Rapid) - Final Radiography Diagnostic Testing: Radiology Impression KUB X-Ray 01/10/22 08:57 IMPRESSION: Fecal impaction from the sigmoid to the rectum, constipation causing gassy gas-filled loops of colon and small bowel. Electronically Signed: Radha Dempsey MD at 15:45 EDT , Chest X-Ray 01/10/22 16:45 IMPRESSION: Increasing bibasilar airspace disease which may represent atelectasis or pneumonia. There are trace bilateral effusions. at 1713 Reported and signed by: Chris Henley MD Electronically Signed: Chris Henley MD at 17:12 EDT , KUB X-Ray 01/11/22 05:55 IMPRESSION: No change in suspected fecal impaction. Electronically Signed: Shree Choi MD at 6:44 EDT , Physical Exam Const alert and oriented x3 Constitutional Narrative: inmild respiratory distress Exam Limitations: no limitations HEENT head/scalp atraumatic Head and Scalp: normocephalic Mouth: dry mucous membranes Eyes PERRL, EOMs intact bilaterally and conjunctivae normal Neck no lymphadenopathy, supple and no JVD Resp Resp Narrative: diminished breath sounds bibasally, no wheezes or crackles. on BIPAP Cardio regular rate, regular rhythm, S1 normal heart sound, S2 normal heart sound and no murmurs GI normal to inspection, nondistended, normoactive bowel sounds, soft to palpation, non-tender and non-distended Extremity normal to inspection, full ROM and no clubbing, cyanosis or edema Peripheral Pulses: Yes pulses 2+ throughout Skin no rashes or lesions noted Neuro oriented x3, CN's II-XII intact bilaterally and moves all extremities Sensorium / Orientation: awake and alert Psych affect normal Assessment & Plan Assessment/Plan (1) Ileus: (2) Acute respiratory failure with hypoxia: PLAN: #Acute hypoxic respiratory failure * thought to be multifactorial, due to pneumonia and ALS as well as aspiration pneumonia * has had difficulty being weaned off BIPAP * on IV metronidazole and cefepime * -titrate oxygen to maintain sats > 90% * consult pulmonology as patient cannot be weaned off BIPAP * #Aspiration pneumonia: as above #Hypokalemia: K is 3.3. 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 I suspect the ALS is contributing to his respiratory failure * DVT prophylaxis: lovenox Charges/Coding Visit Charges Inpatient E&M: 62189 [facility] Hosp L3
[2022-01-11] MEDS: Enoxaparin 40 MG/0.4 ML Syringe SC (10:54)
[2022-01-11] MEDS: LORazepam 2 MG/ML Bottle 0.5 MG SL ×3 (11:12→15:31)
--- NOTE | 2022-01-11 15:45 | NURSING ---
RT Aaliyah attempted to switch patient to airvo. Patients 02 saturations stable 93% on airvo, however patient requested to be put back on bipap. Patient c/o SOB. Bipap applied, Fi02 had to be increased to 65% but 02 saturation dropped to 83%. Fi02 increased to 100% for patient to be >90% saturation. Patient oxygen saturation stabilized and weaned back to 65% fi02. Ativan SL given for anxiety. Breathing tx given. RT remained at bedside during event. Patient also repositioned.
[2022-01-11] MEDS: Furosemide 40 MG/4 ML Vial IV (16:54)
--- NOTE | 2022-01-11 17:59 | CPS ---
Pt transferred from [facility] to PCU on Bipap. Pt miya transfer well.
[2022-01-11] MEDS: LORazepam 2 MG/ML Syringe 1 MG IV ×2 (20:17→22:25)
[2022-01-11] MEDS: 0.9% Saline Lock 10 ML Syringe IV ×2 (20:18→22:25)
[2022-01-12] VITALS (22 sets, daily range): BP systolic 110–160; BP diastolic 69–87; PULSE 100–132; RESP 12–34; TEMP 36.1–37.2; O2SAT 84–99
[2022-01-12] MEDS: LORazepam 2 MG/ML Syringe 1 MG IV ×4 (02:45→23:18)
[2022-01-12] MEDS: 0.9% Saline Lock 10 ML Syringe IV ×6 (02:45→21:07)
[2022-01-12] MEDS: metroNIDAZOLE 500 MG/100 ML BAG 100 MG IV ×3 (05:05→21:04)
[2022-01-12 06:07] LABS: Absolute Lymphocyte Count 0.73 X10^3/uL (0.83-4.51); Absolute Neutrophil Count 14.9 X10^3/uL (2.0-7.7); Basophil# 0.05 X10^3/uL; Basophil% 0.3 % (0-1); Hematocrit 35.4 % (40-54); Hemoglobin 11.3 g/dL (13.0-16.5); Lymphocyte # 0.73 X10^3/ul (0.83-4.51); Lymphocyte % 4.3 % (19-41); Mean Corp Hgb Conc 31.9 g/dL (32-36); Mean Corpuscular Hgb 31.2 pg (27.0-32.0); Mean Corpuscular Volume 97.8 fL (80-94); Monocyte# 1.09 X10^3/uL; Monocyte% 6.4 % (0-10); NRBC Flagged by Analyzer 0 % (0-5); Neutrophil # 14.87 X10^3/uL (2.7-7.7); Neutrophil % 88.1 % (47-70); Platelet Count 300 K/mm3 (150-450); RBC Distribution Width CV 13.6 % (11.6-14.6); RBC Distribution Width SD 49.2 fl (35.1-43.9); Red Blood Count 3.62 M/mm3 (4.6-6.2); White Blood Count 16.9 K/mm3 (4.4-11.0)
[2022-01-12 06:32] LABS: Anion Gap 7 (5-15); BUN 31 mg/dL (7-18); BUN/Creat Ratio 40.6 RATIO (10-20); Calcium,Total 9.2 mg/dL (8.5-10.1); Chloride 109 mmol/L (98-107); Creatinine, Serum 0.76 mg/dL (0.70-1.30); EST Glomerular Filtration Rate 108 mL/min (>60); Est Glom Filt Rate - Afr Amer 131 mL/min (>60); Estimated Creatinine Clearance 55.76 ml/min; Glucose 96 mg/dL (74-106); Potassium 2.8 mmol/L (3.5-5.1); Sodium Level 148 mmol/L (136-145)
--- NOTE | 2022-01-12 06:44 | EX.PCM.CONCC ---
Assessment & Plan Assessment/Plan (1) Acute respiratory failure with hypoxia: PLAN: RECOMMENDATIONS: 1. Continue BiPAP support and wean as tolerated. Goal to maintain oxygen saturations at or above 90%. 2. Maintain n.p.o. status, the patient is at high risk for future aspiration events. 3. Maintain aspiration precautions. 4. Consider consultation to general surgery for PEG tube placement. 5. Palliative care consultation pending. 6. Initiate combined IPV and CoughAssist. IMPRESSIONS: 1. Acute combined respiratory failure Likely secondary to baseline ALS, exacerbated by aspiration pneumonia. The patient was recently diagnosed in November and was just seen by an outside printing pressman who confirmed significant impairment in his pulmonary physiology and diaphragmatic weakness. I agree with maintaining the patient n.p.o., as he is at high risk for future aspiration events. Continue broad-spectrum antimicrobials as ordered. Continue BiPAP therapy as tolerated and wean FiO2 for saturations greater than 90%. I would strongly recommend that general surgery been consulted to evaluate for PEG tube placement. The patient was just ordered a noninvasive ventilator, suction and CoughAssist device by his outside pulmonary provider. While admitted to the hospital, will initiate combined IPV and CoughAssist as well. 2. Recent diagnosis of ALS The patient appears to be quite decompensated from a respiratory perspective. I did briefly introduce the idea of the utility of tracheostomy placement in the setting of ALS to the patient and his family. I am concerned that if the patient does not start to make some form of meaningful recovery, this may certainly need to be a consideration. Alternatively, I agree that palliative care should likely be involved with the patient's case at this time. 3. Hypertension/hyperlipidemia Complicates care, management, recovery and prognosis. Continue to hold home medications, given n.p.o. status. This note was generated with PassKit dictation software. It may contain incorrect words, spelling, and punctuation that were not noted in checking the note before signing. HPI Consult Data Date of Consult: 01/13/22 HPI Narrative Reason for Consultation: Acute hypoxemic respiratory failure HPI Narrative: The patient is a 66-year-old male, with a history as outlined below, who presented to the emergency department on January 08 with shortness of breath, cough and fever. The patient was just recently diagnosed in November with ALS. He apparently was just seen by his neurologist last week at the [facility]. It does appear that orders were placed at that time for a noninvasive ventilator, suction and CoughAssist device to [facility]. In addition, he was just recently evaluated by an outside printing pressman with pulmonary function studies completed last week as well. The patient was noted to have diaphragm involvement with severe restrictive impairment with a drop in pulmonary parameters from sitting to supine, low MIP/MEP and elevated TcCO2 of 48 mmHg. The patient was also noted to have bulbar symptoms and it was recommended that a feeding tube be considered in the very near future. The patient was never previously on any form of a modified diet. On presentation to the emergency department, the patient was noted to have a low-grade fever and was tachycardic and tachypneic. Laboratory evaluation revealed an elevated white blood cell count 18,000. Chemistry profile was notable for a bicarbonate of 34. Lactate was within normal limits. MRSA screen was negative. CTA chest was obtained which showed no evidence for pulmonary embolism. Bilateral lower lobe infiltrates were noted. The patient was subsequently started on antimicrobials. According to documentation, the patient has essentially been on BiPAP for the last 2 days. [facility] Medical History ALS (amyotrophic lateral sclerosis) Arthritis Cataracts, bilateral Dizziness High cholesterol History of kidney stones History of nephrolithotomy with removal of calculi Hypertension Tremor Home Medications amlodipine 5 mg tablet 5 mg PO DINNER tab 03/04/21 [History Last Taken 01/07/22] atorvastatin 40 mg tablet 40 mg PO DINNER tab 03/04/21 [History Last Taken 01/07/22] magnesium oxide 400 mg (241.3 mg magnesium) tablet 400 mg PO DINNER tab 03/04/21 [History Last Taken 01/07/22] Disability Placard #1 ea 07/10/21 [Rx Last Taken Unknown] Walker #1 ea 08/11/21 [Rx Last Taken Unknown] riluzole 50 mg PO BIDCM 01/08/22 [History Last Taken 01/08/22] Allergy/AdvReac Type Severity Reaction Status Date / Time Penicillins Allergy Unknown Verified 01/08/22 20:07 Family History Other Dementia Surgical History no surgical history Social History Smoking Status: Never smoker Electronic Cigarette Use: not used second hand exposure: No alcohol intake: current alcohol intake frequency: a few times a week Alcohol type: beer substance use type: does not use ROS Constitutional Constitutional: Reports fatigue, fever(s) and weakness Eyes Eyes: Denies blurry vision or change in vision ENT HEENT: Reports dysphagia Cardiovascular Cardiovascular: Reports dyspnea Respiratory/Chest Respiratory/Chest: Reports cough and dyspnea Gastrointestinal Gastrointestinal: Reports constipation Genitourinary Genitourinary: Denies difficulty urinating Musculoskeletal Musculoskeletal: Denies arthralgias, back pain or joint pain Integumentary Integumentary: Denies lesions, rash or skin ulcer Neurologic Neurologic: Reports focal weakness Psychiatric Psychiatric: Denies anxiety or depression Endocrine Endocrinology: Reports fatigue Hematologic/Lymphatic Hematologic/Lymphatic: Denies easy bleeding or easy bruising Physical Exam Const alert General Appearance: ill appearing, frail and on BiPAP Orientation / Consciousness: lethargic Nutritional Appearance: cachectic HEENT normocephalic and head/scalp atraumatic Eyes PERRL and EOMs intact bilaterally Neck supple General: trachea midline Chest inspection of chest normal Resp Effort and Inspection: tachypneic and labored Auscultation: diminished lung sounds Cardio S1 normal heart sound and S2 normal heart sound Rate: tachycardic GI normal to inspection, nondistended, normoactive bowel sounds Extremity no clubbing, cyanosis or edema Skin no rashes or lesions noted Neuro Neuro Narrative: Generalized nonfocal musculoskeletal weakness Psych Mood & Affect: flat affect Medical Records Data Medical Nutrition Assessment Dietitian: Malnutrition Criteria Met Start: 01/09/22 13:38 Freq: Status: Active Protocol: Document 01/09/22 13:38 (Rec: 01/09/22 13:38 [id number]) Nutrition Malnutrition Evidence of Malnutrition Exists Yes Malnutrition (severe): Chronic Evidenced By Suboptimal Energy Intake ( Severe),Weight Loss (Severe), Physical Changes (Severe) Clinical Problem Chronic Disease or Condition Related Malnutrition Etiology severe, chronic malnutrition r /t inadequate energy intake d/ t weakness, swallowing difficulty Signs/Symptoms as evidenced by unintentional wt loss of 38.7#/24% x 1 year; estimated PO intake meeting < 75% of estimated energy needs >3 months; severe muscle wasting/fat loss evident per physical exam in clavicles, temples, upper extremities, orbital area. Status Active Problem Recommendation Dietitian Recommendations/Changes continue regular diet, texture /consistency modifications per MEDICAL STAFF PHYSICIAN; will add 4oz ensure w/ meals- continue 4oz 4x/day w/ medpass. Will try ensure pudding at meals. Lab / Micro Data Result Diagrams: 01/13/22 05:00 01/12/22 05:42 Labs: Laboratory Results - last 24 hr 01/12/22 05:42: WBC 16.9 H, RBC 3.62 L, Hgb 11.3 L, Hct 35.4 L, MCV 97.8 H, MCH 31.2, MCHC 31.9 L, RDW Std Deviation 49.2 H, RDW Coeff of Paul 13.6, Plt Count 300, MPV 10.0, Immature Gran % (Auto) 0.900, Neut % (Auto) 88.1 H, Lymph % (Auto) 4.3 L, [place] % (Auto) 6.4, Eos % (Auto) 0.0, Baso % (Auto) 0.3, Absolute Neuts (auto) 14.9 H, Absolute Lymphs (auto) 0.73 L, Nucleated RBC % 0 01/12/22 05:42: Sodium 148 H, Potassium 2.8 L, Chloride 109 H, Carbon Dioxide 32.0, Anion Gap 7, BUN 31 H, Creatinine 0.76, Estim Creat Clear Calc 55.76, Est GFR (MDRD) Af Amer 131, Est GFR (MDRD) Non-Af 108, BUN/Creatinine Ratio 40.6 H, Glucose 96, Calcium 9.2 Micro: Microbiology 01/08/22 20:45 Blood Culture (Wb) #2 - Left Forearm Blood Culture - Preliminary No growth in 48 hours. 01/08/22 20:20 Blood Culture (Wb) - Anticubital Left Blood Culture - Preliminary No growth in 48 hours. Radiology Impression KUB X-Ray 01/11/22 05:55 IMPRESSION: No change in suspected fecal impaction. Electronically Signed: Shree Choi MD at 6:44 EDT , Charges/Coding Visit Charges Inpatient E&M: 46007 Init Hosp L3
[2022-01-12] MEDS: Potassium Chloride 10mEq/100mL 10 MEQ/100 ML IV.SOLN. 100 MEQ IV BOLUS ×3 (07:04→11:10)
[2022-01-12] MEDS: Potassium Chloride 10mEq/100mL 10 MEQ/100 ML IV.SOLN. 80 MEQ IV BOLUS (08:42)
--- NOTE | 2022-01-12 09:07 | PN.HOSP_ITS ---
Subjective Subjective Patient seen and examined. He was transferred down to the PCU yesterday after he became more tachypneic and tachycardic.He remains on bipap. He is very frail and lethargic. Unable to do review of systems because patient is unable to communicate well due to weakness and lethargy, and being on BIPAP. He still remains tachypneic and tachycardic. Objective Data Objective Data Vital Signs: Vital Signs Temp Pulse Resp BP Pulse Ox 97.8 F 100 26 H 127/78 H 97 01/12/22 07:00 01/12/22 07:12 01/12/22 07:12 01/12/22 07:00 01/12/22 07:12 Oxygen Flow Rate (L/min) 65 Oxygen Delivery Method Bi-pap Weight: 121 lb 4.068 oz Body Mass Index (BMI) 18.4 Intake & Output: Intake and Output for Last 24 Hours 01/10/22 01/11/22 01/12/22 23:59 23:59 23:59 Intake Total 2176.25 / 2176.25 1010 / 1010 212 / 212 Output Total 1400 / 2500 3500 / 3500 550 / 550 Balance 776.25 / -323.75 -2490 / -2490 -338 / -338 Medical Nutrition Assessment Dietitian: Malnutrition Criteria Met Start: 01/09/22 13:38 Freq: Status: Active Protocol: Document 01/09/22 13:38 AG (Rec: 01/09/22 13:38 AG [id number]) Nutrition Malnutrition Evidence of Malnutrition Exists Yes Malnutrition (severe): Chronic Evidenced By Suboptimal Energy Intake ( Severe),Weight Loss (Severe), Physical Changes (Severe) Clinical Problem Chronic Disease or Condition Related Malnutrition Etiology severe, chronic malnutrition r /t inadequate energy intake d/ t weakness, swallowing difficulty Signs/Symptoms as evidenced by unintentional wt loss of 38.7#/24% x 1 year; estimated PO intake meeting < 75% of estimated energy needs >3 months; severe muscle wasting/fat loss evident per physical exam in clavicles, temples, upper extremities, orbital area. Status Active Problem Recommendation Dietitian Recommendations/Changes continue regular diet, texture /consistency modifications per ZIPPER JOINER; will add 4oz ensure w/ meals- continue 4oz 4x/day w/ medpass. Will try ensure pudding at meals. Lab / Micro Data Result Diagrams: 01/12/22 05:42 01/12/22 05:42 Labs: Laboratory Results - last 24 hr 01/12/22 05:42: WBC 16.9 H, RBC 3.62 L, Hgb 11.3 L, Hct 35.4 L, MCV 97.8 H, MCH 31.2, MCHC 31.9 L, RDW Std Deviation 49.2 H, RDW Coeff of Paul 13.6, Plt Count 300, MPV 10.0, Immature Gran % (Auto) 0.900, Neut % (Auto) 88.1 H, Lymph % (Auto) 4.3 L, [place] % (Auto) 6.4, Eos % (Auto) 0.0, Baso % (Auto) 0.3, Absolute Neuts (auto) 14.9 H, Absolute Lymphs (auto) 0.73 L, Nucleated RBC % 0 01/12/22 05:42: Sodium 148 H, Potassium 2.8 L, Chloride 109 H, Carbon Dioxide 32.0, Anion Gap 7, BUN 31 H, Creatinine 0.76, Estim Creat Clear Calc 55.76, Est GFR (MDRD) Af Amer 131, Est GFR (MDRD) Non-Af 108, BUN/Creatinine Ratio 40.6 H, Glucose 96, Calcium 9.2 Micro: Microbiology 01/08/22 20:45 Blood Culture (Wb) #2 - Left Forearm Blood Culture - Preliminary No growth in 48 hours. 01/08/22 20:20 Blood Culture (Wb) - Anticubital Left Blood Culture - Preliminary No growth in 48 hours. 01/09/22 10:05 Urine, Random Streptococcus pneumoniae Antigen (M - Final 01/09/22 10:05 Urine, Random Legionella Antigen - Final 01/08/22 20:55 Mucosa - Nasopharyngeal Influenza Types A,B Direct FA (PEREZ) - Final 01/08/22 20:55 Nasal Secretion SARS-CoV-2 Antigen (Rapid) - Final Physical Exam Const alert Constitutional Narrative: lethargic, very weak. On BIPAP Exam Limitations: physical limitations Nutritional Appearance: cachectic HEENT head/scalp atraumatic HEENT Narrative: dry oral mucosal membranes Head and Scalp: normocephalic Eyes PERRL, EOMs intact bilaterally and conjunctivae normal Neck no lymphadenopathy, supple and no JVD Resp Resp Narrative: diminished breath sounds bibasally, no wheezes or crackles. Remains on BIPAP, tachypneic Cardio regular rhythm, S1 normal heart sound, S2 normal heart sound and no murmurs Cardio Narrative: tachycardic GI normal to inspection, nondistended, normoactive bowel sounds, soft to palpation, non-tender and non-distended Extremity normal to inspection, full ROM and no clubbing, cyanosis or edema Peripheral Pulses: Yes pulses 2+ throughout Skin no rashes or lesions noted Neuro CN's II-XII intact bilaterally and moves all extremities Neuro Narrative: patient very weak and frail Sensorium / Orientation: awake and alert Psych Psych Narrative: flat affect Assessment & Plan Assessment/Plan (1) Ileus: (2) Acute respiratory failure with hypoxia: PLAN: #Acute hypoxic respiratory failure * thought to be multifactorial, due to pneumonia and ALS as well as aspiration pneumonia * had to be transferred emergently to the PCU yesterday due to worsening respiratory state. * remains on bipap; less tachypneic and tachycardic today * on IV metronidazole and cefepime * -titrate oxygen to maintain sats > 90% * pulmonology consulted. await rec's * #Aspiration pneumonia: as above #Hypokalemia: potassium is 2.8 today. Will replace and trend #Ileus * CXR apparently showed evidence of ileus * abdominal xray today showed no change in suspected fecal impaction; with large amount of stool in the rectum, and moderate dilattion of the colon suggestive of fecal impaction * patient has been having bowel movements, so it appears the ileus is resolving. 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 I suspect the ALS is contributing to his respiratory failure * DVT prophylaxis: lovenox Code status: Daughter tells me that she discuss CODE STATUS with her father yesterday and he wishes to remain DNR CCA no intubation for now continue treating the pneumonia, pending palliative care evaluation. Palliative care to review patient today. Charges/Coding Visit Charges Inpatient E&M: 28112 [facility] L3
[2022-01-12] MEDS: Enoxaparin 40 MG/0.4 ML Syringe SC (10:31)
[2022-01-12] MEDS: Furosemide 40 MG/4 ML Vial IV ×2 (10:31→17:11)
[2022-01-12] MEDS: Albuterol 2.5 MG/3 ML VIAL.NEB. INHALATION ×2 (11:12→17:19)
--- NOTE | 2022-01-12 11:27 | CPS ---
did cough assist after IPV aerosol
--- NOTE | 2022-01-12 11:55 | CON.PCM.PA_ITS ---
Assessment & Plan Assessment/Plan (1) Shortness of breath: (2) Acute respiratory failure with hypoxia: (3) Ileus: (4) Protein calorie malnutrition: QUALIFIERS: Protein-calorie malnutrition severity: severe Qualified Code(s): E43 - Unspecified severe protein-calorie malnutrition (5) Pneumonia: QUALIFIERS: Laterality: bilateral Lung location: lower lobe of lung Pneumonia type: due to unspecified organism Qualified Code(s): J18.9 - Pneumonia, unspecified organism (6) Neuropathy of lower extremity: QUALIFIERS: Laterality: unspecified laterality Qualified Code(s): G57.90 - Unspecified mononeuropathy of unspecified lower limb (7) Fatigue: QUALIFIERS: Fatigue type: unspecified Qualified Code(s): R53.83 - Other fatigue (8) Dysphagia: QUALIFIERS: Dysphagia type: unspecified Qualified Code(s): R13.10 - Dysphagia, unspecified (9) Weight loss: PLAN: 66-year-old male with ALS, admitted to the hospital with pneumonia and respiratory failure with hypoxia. Seen today for palliative consultation for symptom management of shortness of breath and overall care as an outpatient. 1. Dyspnea/acute hypoxic respiratory failure/pneumonia: This has been progressive, he has decompensated and required a higher level of care. He has not had any oxygen requirements in the past. It appears his ALS is somewhat advanced. Requiring continuous BiPAP. The family has had a previous discussion about hospice, however was brief. Vein Access Technician/flame degreaser saw the patient today and is concerned breathing will not improve. Patient is unable to expectorate sputum. 2. Ileus: He has had serial KUBs, no change. No n/v. Unclear plan at this point, will continue to follow. 3. Malnutrition: Vein Access Technician is recommending PEG tube as patient has significant dysphagia and now bowel obstruction. He is not able to receive nutrition otherwise (long-term). He is contemplating the PEG but is hesitant and leaning more towards hospice. We will continue to support the patient and family and go from there. 4. Neuropathy/fatigue/dysphagia/weight loss/ALS: Complicates overall care, management, recovery, and prognosis. Thank you for the opportunity to participate in this patient's care, please do not hesitate to contact [facility] with any further questions or concerns, direct line is [phone]. Contact information left with the patient and daughter. Also spoke in person on several different occasions with the patient and daughter today and answered questions regarding palliative and hospice services, including benefits and limitations of each program. we had another goals of care discussion and patient and daughter both verified he does not want intubation for any reason. If he does not recover from pneumonia and respiratory failure, he is electing to pursue hospice services. Otherwise, we w ill follow him in the palliative program. Greater than 50% of F2F visit dedicated to education and counseling of palliative care services, medications, comorbid conditions and potential assistance with management, and plan of care moving forward. Start time: 1150 End time: 1245 Start time: 1405 End time: 1450 HPI Consult Data Date of Consult: 01/13/22 HPI Narrative HPI Narrative: GORDY LEWIS, is a 66 M who presented to [facility] 01/08/2022 with complaints of cough, shortness of breath, hypoxia, and fever. Patient has history of Gisselle Gehrig's disease but typically no respiratory issues. He was in the 70s for oxygen saturation at home. Evaluation in ED revealed a leukocytosis, chest x-ray bibasilar atelectasis. CT of the chest was negative for PE or dissection, however showed bilateral basilar infiltrates. Patient was admitted to [facility] floor for further evaluation and management, as well as treatment for pneumonia. Patient was having abdominal distention, KUB 01/09 showed diffuse ileus that was previously seen on CTA 01/08. Repeat KUB 01/10 showed fecal impaction from sigmoid to the rectum, gas-filled loops of colon and small bowel. Repeat chest x-ray 01/10 showed prior no pneumonia and trace bilateral effusions. Another KUB 01/11 showed no change in suspected fecal impaction. Leukocytosis has had modest improvement to 16,900 from 18,300. Potassium today 2.8. Kidney function has remained about the same. EKG shows sinus tachycardia. During his course of hospital, he is decompensated respiratory canas and was transferred from [facility] to PCU. Patient lives with daughter and son-in-law and grandson in two-story home. He reported mostly independent in ADLs and daughter assist him with bathing. He had just moved in with his daughter within the last [address] Patient [address] not drive. Daughter transports him to appointments. He does have some DME in the home including grab bars, FWW, wheelchair, straight cane. Daughter, Marilee Conley has been attempting to get home health care for personal care. Patient uses [facility] in [place] for pharmacy and follows with [facility] physicians. His neurologist is at [facility]. Marilee spoke with her dad yesterday about his wishes if things would deteriorate, he has indicated he would like to be hospice if he is unable to come off the BiPAP. I did ask the patient personally his wishes and he does not wish to be intubated for any reason. He is currently a DNR CCA with no intubation. Patient is tachycardic in the 120s to 130s with labored breathing on BiPAP. He is able to answer questions by shaking head. Indicates so-so with his breathing by use of his hands. He does not have any lower extremity edema. Appears cachectic. Denies any significant pain. Feels very fatigued and worn out. [facility] Medical History ALS (amyotrophic lateral sclerosis) Arthritis Cataracts, bilateral Dizziness High cholesterol History of kidney stones History of nephrolithotomy with removal of calculi Hypertension Tremor Home Medications amlodipine 5 mg tablet 5 mg PO DINNER tab 03/04/21 [History Last Taken 01/07/22] atorvastatin 40 mg tablet 40 mg PO DINNER tab 03/04/21 [History Last Taken 01/07/22] magnesium oxide 400 mg (241.3 mg magnesium) tablet 400 mg PO DINNER tab 03/04/21 [History Last Taken 01/07/22] Disability Placard #1 ea 07/10/21 [Rx Last Taken Unknown] Walker #1 ea 08/11/21 [Rx Last Taken Unknown] riluzole 50 mg PO BIDCM 01/08/22 [History Last Taken 01/08/22] Allergy/AdvReac Type Severity Reaction Status Date / Time Penicillins Allergy Unknown Verified 01/08/22 20:07 Family History Other Dementia Surgical History no surgical history Social History Smoking Status: Never smoker Electronic Cigarette Use: not used second hand exposure: No alcohol intake: current alcohol intake frequency: a few times a week Alcohol type: beer substance use type: does not use ROS ROS Narrative Review of systems otherwise negative from a constitutional, HEENT, respiratory, cardiovascular, GI, genitourinary, musculoskeletal, skin, neurologic, psychiatric and hematologic system unless stated above. Physical Exam Const alert Constitutional Narrative: labored breathing on bipap, appears somewhat comfortable and not too restless General Appearance: ill appearing Nutritional Appearance: cachectic Neck supple General: trachea midline Resp Resp Narrative: did not auscultate posterior obrien, labored and on bipap Effort and Inspection: symmetric chest movement Auscultation: clear to auscultation bilaterally and diminished lung sounds Cardio regular rhythm Rate: tachycardic Heart Sounds: S1 normal and S2 normal GI soft to palpation and non-tender Extremity normal to inspection and no clubbing, cyanosis or edema Skin no rashes or lesions noted Neuro Neuro Narrative: limited exam 2/2 respiratory status and bipap on. can follow commands, makes eye contact. Psych Mood & Affect: anxious
[2022-01-12] MEDS: Morphine 2 MG/ML Syringe 1 MG IV ×3 (13:26→21:04)
[2022-01-12 14:32] LABS: Pathologist Review Reviewed
[2022-01-12] MEDS: Bisacodyl 10 MG Suppository RC (15:07)
--- NOTE | 2022-01-12 15:23 | CPS ---
pt's family didn't want pt woke for IPV tx @this time.
--- NOTE | 2022-01-12 17:27 | CPS ---
used Cough Assist after IPV tx but pt wasn't able to cough up anything.
--- NOTE | 2022-01-12 17:41 | CPS ---
Turned up BIPAP to 60% because pt still feels SOB and wanted it up if possible.
--- NOTE | 2022-01-12 18:15 | CPS ---
pt was exhausted after IPV and cough assist and wants to wait til morning for next tx.
[2022-01-13] VITALS (16 sets, daily range): BP systolic 101–137; BP diastolic 66–84; PULSE 104–131; RESP 12–32; TEMP 36.5–37; O2SAT 94–98
[2022-01-13] MEDS: Morphine 2 MG/ML Syringe 1 MG IV ×3 (00:44→05:06)
[2022-01-13] MEDS: LORazepam 2 MG/ML Syringe 1 MG IV ×5 (02:03→16:21)
[2022-01-13] MEDS: metroNIDAZOLE 500 MG/100 ML BAG 100 MG IV ×2 (05:06→13:57)
[2022-01-13 06:01] LABS: Absolute Lymphocyte Count 0.76 X10^3/uL (0.83-4.51); Absolute Neutrophil Count 12.5 X10^3/uL (2.0-7.7); Basophil# 0.03 X10^3/uL; Basophil% 0.2 % (0-1); Hematocrit 39.6 % (40-54); Hemoglobin 12.6 g/dL (13.0-16.5); Lymphocyte # 0.76 X10^3/ul (0.83-4.51); Lymphocyte % 5.2 % (19-41); Mean Corp Hgb Conc 31.8 g/dL (32-36); Mean Corpuscular Hgb 31.3 pg (27.0-32.0); Mean Corpuscular Volume 98.5 fL (80-94); Mean Platelet Vol. 10.3 fl (6.2-12.0); Monocyte# 1.17 X10^3/uL; NRBC Flagged by Analyzer 0 % (0-5); Neutrophil # 12.47 X10^3/uL (2.7-7.7); Neutrophil % 85.6 % (47-70); Platelet Count 339 K/mm3 (150-450); RBC Distribution Width CV 13.4 % (11.6-14.6); RBC Distribution Width SD 48.8 fl (35.1-43.9); Red Blood Count 4.02 M/mm3 (4.6-6.2); White Blood Count 14.6 K/mm3 (4.4-11.0)
--- NOTE | 2022-01-13 06:29 | PCM.PN.INT ---
Assessment & Plan Assessment/Plan (1) Acute respiratory failure with hypoxia: PLAN: RECOMMENDATIONS: 1. Continue BiPAP support and wean as tolerated. Goal to maintain oxygen saturations at or above 90%. 2. Obtain arterial blood gas given significant lethargy noted this morning. 3. Discontinue IV Ativan and morphine for now. 4. Maintain n.p.o. status, the patient is at high risk for future aspiration events. 5. Maintain aspiration precautions. 6. Continue combined IPV and CoughAssist. 7. Goals of care discussion with the patient's family. IMPRESSIONS: 1. Acute combined respiratory failure Likely secondary to baseline ALS, exacerbated by aspiration pneumonia. The patient was recently diagnosed in November and was just seen by an outside cigar tobacco processing supervisor who confirmed significant impairment in his pulmonary physiology and diaphragmatic weakness. I agree with maintaining the patient n.p.o., as he is at high risk for future aspiration events. Continue broad-spectrum antimicrobials as ordered. Continue BiPAP therapy as tolerated and wean FiO2 for saturations greater than 90%. Unfortunately, PEG tube placement would not be feasible, as the patient has been unable to be weaned from BiPAP for any significant amount of time. He will be continued on Pap support along with IPV and CoughAssist. Given how severely decompensated the patient currently is, he may require tracheostomy. The patient's family is going to meet to discuss this issue further today. In the interim, I have discontinued the patient's Ativan and morphine, as it has left him significantly lethargic this morning. Will obtain arterial blood gas accordingly. 2. Recent diagnosis of ALS The patient appears to be quite decompensated from a respiratory perspective. I did briefly introduce the idea of the utility of tracheostomy placement in the setting of ALS to the patient and his family. I am concerned that if the patient does not start to make some form of meaningful recovery, this may certainly need to be a consideration. Alternatively, hospice care referral would also be a reasonable option at this time as well. 3. Hypertension/hyperlipidemia Complicates care, management, recovery and prognosis. Continue to hold home medications, given n.p.o. status. This note was generated with [employer] software. It may contain incorrect words, spelling, and punctuation that were not noted in checking the note before signing. Subjective Subjective The patient was seen and examined at the bedside this morning. Events from the last 24 hours have been reviewed. The patient is currently afebrile, hemodynamically stable and maintaining appropriate oxygen saturations on BiPAP with an FiO2 requirement of 60%. The patient remains tachycardic and tachypneic. Unfortunately, early this morning, the patient was given both Ativan and IV morphine and he is now quite lethargic and unable to participate in any form of conversation. I did speak very frankly with his family present at the bedside regarding his overall prognosis. I explained to them that in order to place a PEG tube he would need to be taken off of BiPAP to facilitate the procedure being completed. Nevertheless, the patient has not been able to be weaned off of BiPAP for any significant amount of time for multiple days now. In addition, I am concerned that the patient is so decompensated from a respiratory perspective that he may require tracheostomy. I strongly urged the patient's family to discuss these issues further. Alternatively, hospice would be a reasonable consideration as well. Objective Data Objective Data The patient's most recent lab work, culture data and imaging studies have all been personally reviewed. Infectious work-up has been unrevealing to date. Vital Signs: Vital Signs Temp Pulse Resp BP Pulse Ox 98.4 F 118 H 26 H 137/84 H 97 01/13/22 04:00 01/13/22 04:50 01/13/22 04:50 01/13/22 04:00 01/13/22 04:50 Oxygen Flow Rate (L/min) 15 Oxygen Delivery Method Bi-pap Weight: 55 kg Body Mass Index (BMI) 18.4 Intake & Output: Intake and Output for Last 24 Hours 01/11/22 01/12/22 01/13/22 23:59 23:59 23:59 Intake Total 1010 / 1010 1140 / 1140 Output Total 3500 / 3500 2475 / 2475 Balance -2490 / -2490 -1335 / -1335 Medical Nutrition Assessment Dietitian: Malnutrition Criteria Met Start: 01/09/22 13:38 Freq: Status: Active Protocol: Document 01/09/22 13:38 (Rec: 01/09/22 13:38 [id number]) Nutrition Malnutrition Evidence of Malnutrition Exists Yes Malnutrition (severe): Chronic Evidenced By Suboptimal Energy Intake ( Severe),Weight Loss (Severe), Physical Changes (Severe) Clinical Problem Chronic Disease or Condition Related Malnutrition Etiology severe, chronic malnutrition r /t inadequate energy intake d/ t weakness, swallowing difficulty Signs/Symptoms as evidenced by unintentional wt loss of 38.7#/24% x 1 year; estimated PO intake meeting < 75% of estimated energy needs >3 months; severe muscle wasting/fat loss evident per physical exam in clavicles, temples, upper extremities, orbital area. Status Active Problem Recommendation Dietitian Recommendations/Changes continue regular diet, texture /consistency modifications per DIRECTOR INDEPENDENT; will add 4oz ensure w/ meals- continue 4oz 4x/day w/ medpass. Will try ensure pudding at meals. Lab / Micro Data Attestation: I reviewed the patient's lab results. Result Diagrams: 01/13/22 05:00 01/13/22 05:00 Labs: Laboratory Results - last 24 hr 01/09/22 05:35: Diff Path Review Reviewed 01/12/22 05:42: Sodium 148 H, Potassium 2.8 L, Chloride 109 H, Carbon Dioxide 32.0, Anion Gap 7, BUN 31 H, Creatinine 0.76, Estim Creat Clear Calc 55.76, Est GFR (MDRD) Af Amer 131, Est GFR (MDRD) Non-Af 108, BUN/Creatinine Ratio 40.6 H, Glucose 96, Calcium 9.2 01/13/22 05:00: WBC 14.6 H, RBC 4.02 L, Hgb 12.6 L, Hct 39.6 L, MCV 98.5 H, MCH 31.3, MCHC 31.8 L, RDW Std Deviation 48.8 H, RDW Coeff of Paul 13.4, Plt Count 339, MPV 10.3, Immature Gran % (Auto) 1.000 H, Neut % (Auto) 85.6 H, Lymph % (Auto) 5.2 L, [place] % (Auto) 8.0, Eos % (Auto) 0.0, Baso % (Auto) 0.2, Absolute Neuts (auto) 12.5 H, Absolute Lymphs (auto) 0.76 L, Nucleated RBC % 0 Micro: Microbiology 01/08/22 20:45 Blood Culture (Wb) #2 - Left Forearm Blood Culture - Preliminary No growth in 48 hours. 01/08/22 20:20 Blood Culture (Wb) - Anticubital Left Blood Culture - Preliminary No growth in 48 hours. 01/09/22 10:05 Urine, Random Streptococcus pneumoniae Antigen (M - Final 01/09/22 10:05 Urine, Random Legionella Antigen - Final 01/08/22 20:55 Mucosa - Nasopharyngeal Influenza Types A,B Direct FA (PEREZ) - Final 01/08/22 20:55 Nasal Secretion SARS-CoV-2 Antigen (Rapid) - Final Physical Exam Const General Appearance: ill appearing, frail and on BiPAP Orientation / Consciousness: obtunded and lethargic Nutritional Appearance: cachectic HEENT normocephalic and head/scalp atraumatic Eyes PERRL Neck supple General: trachea midline Chest inspection of chest normal Resp Effort and Inspection: tachypneic and labored Auscultation: diminished lung sounds Cardio S1 normal heart sound and S2 normal heart sound Rate: tachycardic GI normal to inspection, nondistended, normoactive bowel sounds Extremity no clubbing, cyanosis or edema Skin no rashes or lesions noted Neuro Neuro Narrative: The patient is minimally responsive to painful stimulation. Psych Mood & Affect: flat affect Charges/Coding Visit Charges Inpatient E&M: 82879 Subs Hosp L3
[2022-01-13 06:35] LABS: Anion Gap 5 (5-15); BUN 38 mg/dL (7-18); BUN/Creat Ratio 42.2 RATIO (10-20); Chloride 108 mmol/L (98-107); EST Glomerular Filtration Rate 89 mL/min (>60); Est Glom Filt Rate - Afr Amer 108 mL/min (>60); Estimated Creatinine Clearance 61.96 ml/min; Glucose 105 mg/dL (74-106); Sodium Level 149 mmol/L (136-145)
--- NOTE | 2022-01-13 07:30 | CPS ---
pt unable to do IPV or cough assist this morning
[2022-01-13 07:35] LABS: Magnesium 1.7 mg/dL (1.6-2.6)
[2022-01-13 08:31] LABS: Allen Test Positive; Base Excess 12 mmol/L (-2 to +2); Bicarbonate 37.1 mmol/L (22-26); Blood Gas Specimen Type ART; FI02 50; Mode BiLevel; O2 Delivery Device BiPAP; PEEP 8; PO2 93 mmHG (75-100); RR 12; SITE R Radial; SO2 97 % (95-99); Total Carbon Dioxide 39 mmol/L; pCO2 61.9 mmHg (35-45); pH 7.39 (7.35-7.45)
[2022-01-13] MEDS: Potassium Chloride 10mEq/100mL 10 MEQ/100 ML IV.SOLN. 100 MEQ IV BOLUS ×4 (08:42→12:18)
[2022-01-13] MEDS: Furosemide 40 MG/4 ML Vial IV (10:53)
--- NOTE | 2022-01-13 12:51 | CHAPLAIN ---
Type of Pastoral Visit _x__ Initial Visit ___ Follow-up Visit ___ On-call Visit ___ General Patient Visit ___ Spiritual Assessment ___ Family Conference ___ Bereavement ___ Rapid Response ___ Code Blue ___ Other (describe below) Pastoral Care Referral From _x__ Patient _x__ Family ___ Nurse ___ Physician ___ Criminal Profiler ___ Lace Machine Operator ___ Other (describe below) Sacrament/Intervention _x__ Active listening ___ Anointing ___ Anabaptist ___ Bereavement ___ Communion ___ Varsha exploration ___ ___ Life review _x__ Prayer ___ Reconciliation ___ Sacrament of Sick _x__ Supportive presence ___ Wedding ___ Other (describe below) Pastoral Comments patient is on bi-pap at time of visit but later moved to [facility]; daughter and son-in-law are present; family gives more insights into health and life of the patient as he is not talking; rapid decline occurring in pt although gradual decline has been evident for many months; pt formerly was active in [facility] in [place]; offer of support given; offer of prayer and pt gives 'thumbs up' sign; pt repeats 'thumbs up' after the prayer; pt attempts to speak but cannot; continual support will be available as needed
--- NOTE | 2022-01-13 14:59 | PN.HOSP_ITS ---
Subjective Subjective Patient seen and examined. Daughter was by his bedside. He remains on BIPAP. He had been given some ativan because of agitation, so was quite lethargic. Unable to do review of systems due to lethargy. Objective Data Objective Data Vital Signs: Vital Signs Temp Pulse Resp BP Pulse Ox 97.8 F 107 H 21 H 101/66 97 01/13/22 12:19 01/13/22 14:52 01/13/22 14:52 01/13/22 12:19 01/13/22 14:52 Oxygen Flow Rate (L/min) 15 Oxygen Delivery Method Bi-pap Weight: 121 lb 4.068 oz Body Mass Index (BMI) 18.4 Intake & Output: Intake and Output for Last 24 Hours 01/11/22 01/12/22 01/13/22 23:59 23:59 23:59 Intake Total 1010 / 1010 1140 / 1140 768.25 / 768.25 Output Total 3500 / 3500 2475 / 2475 1100 / 1100 Balance -2490 / -2490 -1335 / -1335 -331.75 / -331.75 Medical Nutrition Assessment Dietitian: Malnutrition Criteria Met Start: 01/09/22 13:38 Freq: Status: Active Protocol: Document 01/09/22 13:38 (Rec: 01/09/22 13:38 [id number]) Nutrition Malnutrition Evidence of Malnutrition Exists Yes Malnutrition (severe): Chronic Evidenced By Suboptimal Energy Intake ( Severe),Weight Loss (Severe), Physical Changes (Severe) Clinical Problem Chronic Disease or Condition Related Malnutrition Etiology severe, chronic malnutrition r /t inadequate energy intake d/ t weakness, swallowing difficulty Signs/Symptoms as evidenced by unintentional wt loss of 38.7#/24% x 1 year; estimated PO intake meeting < 75% of estimated energy needs >3 months; severe muscle wasting/fat loss evident per physical exam in clavicles, temples, upper extremities, orbital area. 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 Will try ensure pudding at meals. Lab / Micro Data Result Diagrams: 01/13/22 05:00 01/13/22 05:00 Labs: Laboratory Results - last 24 hr 01/13/22 05:00: WBC 14.6 H, RBC 4.02 L, Hgb 12.6 L, Hct 39.6 L, MCV 98.5 H, MCH 31.3, MCHC 31.8 L, RDW Std Deviation 48.8 H, RDW Coeff of Paul 13.4, Plt Count 339, MPV 10.3, Immature Gran % (Auto) 1.000 H, Neut % (Auto) 85.6 H, Lymph % (Auto) 5.2 L, [place] % (Auto) 8.0, Eos % (Auto) 0.0, Baso % (Auto) 0.2, Absolute Neuts (auto) 12.5 H, Absolute Lymphs (auto) 0.76 L, Nucleated RBC % 0 01/13/22 05:00: Sodium 149 H, Potassium 3.0 L, Chloride 108 H, Carbon Dioxide 36.0 H, Anion Gap 5, BUN 38 H, Creatinine 0.90, Estim Creat Clear Calc 61.96, Est GFR (MDRD) Af Amer 108, Est GFR (MDRD) Non-Af 89, BUN/Creatinine Ratio 42.2 H, Glucose 105, Calcium 9.0 01/13/22 05:00: Magnesium 1.7 Micro: Microbiology 01/08/22 20:45 Blood Culture (Wb) #2 - Left Forearm Blood Culture - Preliminary No growth in 48 hours. 01/08/22 20:20 Blood Culture (Wb) - Anticubital Left Blood Culture - Preliminary No growth in 48 hours. 01/09/22 10:05 Urine, Random Streptococcus pneumoniae Antigen (M - Final 01/09/22 10:05 Urine, Random Legionella Antigen - Final 01/08/22 20:55 Mucosa - Nasopharyngeal Influenza Types A,B Direct FA (PEREZ) - Final 01/08/22 20:55 Nasal Secretion SARS-CoV-2 Antigen (Rapid) - Final ABG Data ABG results: ABG 01/13/22 08:25 Specimen Type ART Sample Site R Radial pH 7.39 Bicarbonate Actual 37.1 H Total CO2 39 Base Excess 12 H O2 Saturation 97 O2 % 50 ABG pCO2 61.9 H ABG pO2 93 Mp Test Positive Respiration Rate 12 O2 Delivery Device BiPAP Vent Mode BiLevel POC PEEP 8 Clinical Comments 14 12 50 Physical Exam Const Constitutional Narrative: lethargic, very weak. On BIPAP Exam Limitations: altered mental status and physical limitations Nutritional Appearance: cachectic HEENT head/scalp atraumatic Head and Scalp: normocephalic Eyes PERRL, EOMs intact bilaterally and conjunctivae normal Neck no lymphadenopathy, supple and no JVD Resp Resp Narrative: diminished breath sounds bibasally, no wheezes or crackles. R emains on BIPAP, tachypneic Cardio regular rhythm, S1 normal heart sound, S2 normal heart sound and no murmurs Cardio Narrative: tachycardic GI normal to inspection, nondistended, normoactive bowel sounds, soft to palpation, non-tender and non-distended Extremity normal to inspection, full ROM and no clubbing, cyanosis or edema Skin no rashes or lesions noted Neuro CN's II-XII intact bilaterally and moves all extremities Neuro Narrative: patient very weak and frail, lethargic Psych Psych Narrative: lethargic Assessment & Plan Assessment/Plan (1) Ileus: (2) Acute respiratory failure with hypoxia: PLAN: #Acute hypoxic respiratory failure * thought to be multifactorial, due to pneumonia and ALS as well as aspiration pneumonia * had to be transferred emergently to the PCU due to worsening respiratory state . * remains on bipap; still very weak and lethargic * on IV metronidazole and cefepime * -titrate oxygen to maintain sats > 90% * pulmonology consulted. await rec's * #Aspiration pneumonia: as above #Hypokalemia: potassium is 3.0 today. Will replace and trend #Ileus * resolved. * patient has been having bowel movements, so it appears the ileus is resolving. 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 I suspect the ALS is contributing to his respiratory failure * DVT prophylaxis: lovenox Code status:code status switched to DNRCC today after daughter met with hospice. For transfer to hospice Charges/Coding Visit Charges Inpatient E&M: 06403 [facility] Hosp L3
--- NOTE | 2022-01-13 15:32 | DS.PCM_ITS ---
Providers Date of Admission: 01/08/22 Primary Care Physician: Dr. Kevin Solorzano MD Consultations 01/10/22 08:56 Consult: Hospice / Palliative Care Routine Consulting Provider: [facility] Reason for Consult: palliative care. ALS EMERGENT Consult: No Notified: Yes Date Notified: 01/10/22 Time Notified: 08:56 Method of Notification: CM aware 01/11/22 10:51 Consult: Human Resources Analyst / Pulmonary Medicine Routine Consulting Provider: Pulmonary Medicine [facility] Reason for Consult: acute hypoxic respiratory failure EMERGENT Consult: No Notified: Yes Date Notified: 01/11/22 Time Notified: 10:51 Method of Notification: Text 01/13/22 10:27 Consult: Hospice / Palliative Care Routine Consulting Provider: [facility] Reason for Consult: INPATIENT HOSPICE EMERGENT Consult: No Notified: Yes Date Notified: 01/13/22 Time Notified: 10:27 Method of Notification: referral line Reason For Visit: PNEUMONIA Diagnosis Discharge Diagnosis (1) Ileus: Status: Acute Code(s): K56.7 - Ileus, unspecified (2) Acute respiratory failure with hypoxia: Status: Acute Code(s): J96.01 - Acute respiratory failure with hypoxia Medications at Discharge Home Medications amlodipine 5 mg tablet 5 mg PO DINNER tab 03/04/21 atorvastatin 40 mg tablet 40 mg PO DINNER tab 03/04/21 magnesium oxide 400 mg (241.3 mg magnesium) tablet 400 mg PO DINNER tab 03/04/21 Disability Placard #1 ea 07/10/21 Walker #1 ea 08/11/21 riluzole 50 mg PO BIDCM 01/08/22 Hospital Course Operations None Procedures None Summary of Care Provided Minutes Spent on Discharge: 60 Hospital Course: Patient is a 66 y/o male with a PMH of hyperlipidemia, hypertension, and ALS on riluzole. He was admitted via the ED on 01/09/2022 with a complaitn of worsening shortness of breath for 3 days prior to admission, with an associated cough which was occasionally producative. He had associated fatigue and fever of up to 101.4F. The EMS was called to his house and was found to be saturating at 70% on room air and required supplemental oxygenation. He was just only recently diagnosed in November with ALS. He had just seen his neurologist at the [facility] prior to this admission and had had orders for noninvasive ventilator with suction and CoughAssist device at home. He had had a pulmonary function test with an outside stack supervisor and was noted to have diaphragm involvement with severe restrictive impairment with a drop in pulmonary parameters and noted to have bulbar symptoms as well and recommended to be considered for a feeding tube in the very near future. On admission he was tachycardic and tachypneic and had an elevated white cell count of 18,000. CT was negative for PE but showed bilateral lower lobe infiltrates. He was admitted and managed for acute hypoxic respiratory failure. He was initially started on IV ceftriaxone and azithromycin. Shortness of breath gradually worsened and he was started on BiPAP. Patient could not be weaned off of BiPAP and so pulmonology was consulted. Hospital course was complicated by hypokalemia which was aggressively replaced. Eap Consultant was consulted o/a of refractory acute hypoxic and hypercapnic respiratory failure as patient couldnt be weaned off BIPAP. Due to protracted hospital course, palliative care was consulted. Patient was not improving so family decided to make him hospice and CODE STATUS was switched to DNRCC. Hospice team was consulted and patient was accepted for inpatient hospice admission. He was discharged to the inpatient hospice unit on 01/13/2022. Patient was seen and examined prior to discharge. Patient still remains very frail and lethargic and remained on BiPAP though he had had breaks and been put on 15L of oxygen. Unable to do review of systems due to his weakness. Physical Exam Const Constitutional Narrative: lethargic, very weak. On BIPAP General Appearance: lethargic Exam Limitations: altered mental status and physical limitations Nutritional Appearance: cachectic HEENT normocephalic and head/scalp atraumatic Eyes PERRL, EOMs intact bilaterally and conjunctivae normal Neck no lymphadenopathy, supple and no JVD Resp Resp Narrative: diminished breath sounds bibasally, no wheezes or crackles. Remains on BIPAP, tachypneic Cardio regular rhythm, S1 normal heart sound, S2 normal heart sound and no murmurs Cardio Narrative: tachycardic GI normal to inspection, nondistended, normoactive bowel sounds, soft to palpation, non-tender and non-distended Extremity normal to inspection, full ROM and no clubbing, cyanosis or edema Skin no rashes or lesions noted Neuro Neuro Narrative: patient very weak and frail, lethargic Psych Psych Narrative: lethargic Medical Records Data Medical Nutrition Assessment Dietitian: Malnutrition Criteria Met Start: 01/09/22 13:38 Freq: Status: Active Protocol: Document 01/09/22 13:38 (Rec: 01/09/22 13:38 [id number]) Nutrition Malnutrition Evidence of Malnutrition Exists Yes Malnutrition (severe): Chronic Evidenced By Suboptimal Energy Intake ( Severe),Weight Loss (Severe), Physical Changes (Severe) Clinical Problem Chronic Disease or Condition Related Malnutrition Etiology severe, chronic malnutrition r /t inadequate energy intake d/ t weakness, swallowing difficulty Signs/Symptoms as evidenced by unintentional wt loss of 38.7#/24% x 1 year; estimated PO intake meeting < 75% of estimated energy needs >3 months; severe muscle wasting/fat loss evident per physical exam in clavicles, temples, upper extremities, orbital area. 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 Will try ensure pudding at meals. Weight / BMI Weight Weight: 121 lb 4.068 oz Body Mass Index (BMI) 18.4 ABG / Lab / Microbiology Data Result Diagrams: 01/13/22 05:00 01/13/22 05:00 Laboratory: Laboratory Results - last 24 hr 01/13/22 05:00: WBC 14.6 H, RBC 4.02 L, Hgb 12.6 L, Hct 39.6 L, MCV 98.5 H, MCH 31.3, MCHC 31.8 L, RDW Std Deviation 48.8 H, RDW Coeff of Paul 13.4, Plt Count 339, MPV 10.3, Immature Gran % (Auto) 1.000 H, Neut % (Auto) 85.6 H, Lymph % ( Auto) 5.2 L, [place] % (Auto) 8.0, Eos % (Auto) 0.0, Baso % (Auto) 0.2, Absolute Neuts (auto) 12.5 H, Absolute Lymphs (auto) 0.76 L, Nucleated RBC % 0 01/13/22 05:00: Sodium 149 H, Potassium 3.0 L, Chloride 108 H, Carbon Dioxide 36.0 H, Anion Gap 5, BUN 38 H, Creatinine 0.90, Estim Creat Clear Calc 61.96, E st GFR (MDRD) Af Amer 108, Est GFR (MDRD) Non-Af 89, BUN/Creatinine Ratio 42.2 H , Glucose 105, Calcium 9.0 01/13/22 05:00: Magnesium 1.7 Microbiology: Microbiology 01/08/22 20:45 Blood Culture (Wb) #2 - Left Forearm Blood Culture - Preliminary No growth in 48 hours. 01/08/22 20:20 Blood Culture (Wb) - Anticubital Left Blood Culture - Preliminary No growth in 48 hours. 01/09/22 10:05 Urine, Random Streptococcus pneumoniae Antigen (M - Final 01/09/22 10:05 Urine, Random Legionella Antigen - Final 01/08/22 20:55 Mucosa - Nasopharyngeal Influenza Types A,B Direct FA (PEREZ) - Final 01/08/22 20:55 Nasal Secretion SARS-CoV-2 Antigen (Rapid) - Final ABG: ABG 01/13/22 08:25 Specimen Type ART Sample Site R Radial pH 7.39 Bicarbonate Actual 37.1 H Total CO2 39 Base Excess 12 H O2 Saturation 97 O2 % 50 ABG pCO2 61.9 H ABG pO2 93 Mp Test Positive Respiration Rate 12 O2 Delivery Device BiPAP Vent Mode BiLevel POC PEEP 8 Clinical Comments 07/06 12 50 Meaningful Use Info Meaningful Use Diagnoses (Choose all that apply): None applicable Discharge Plan Admission Admit Date/Time: 01/08/22 23:52 Primary Reason for Your Visit: acute hypoxic and hypercapnic respiratory failure, pneumonia Attending Provider: Diana Huerta Primary Care Provider: Kevin Solorzano Consulting Providers: Zahraa Mckee ; Kalia Restrepo ; Kelly Maguire ; Nisa Miller ; Jennifer Castillo ; Janice Miner INSPECTOR WATCH [employer] ; Yossi Eduardo ; Cristobal Kim ; Donna Farley INSPECT[employer] Discharge Orders/Prescriptions Prescriptions: No Action amlodipine 5 mg tablet 5 mg PO DINNER RF: 0 magnesium oxide 400 mg (241.3 mg magnesium) tablet 400 mg PO DINNER RF: 0 atorvastatin 40 mg tablet 40 mg PO DINNER RF: 0 (DME) Disability Placard See Rx Instructions .Route .MEDSUPPLY Qty: 1 RF: 0 riluzole 50 mg tablet 50 mg PO BIDCM RF: 0 (DME) Walker See Rx Instructions .Route .MEDSUPPLY Qty: 1 RF: 0 Referrals / Follow Up: Kevin Solorzano MD [Primary Care Provider] - Disposition Disposition (needs filled in before D/C Order can be placed): Hospice in Medical Facility Charges/Coding Visit Charges Inpatient E&M: 97666 [facility] Hosp
--- NOTE | 2022-01-13 15:54 | NURSING ---
report called to hospice jazz arambula rn
--- NOTE | 2022-01-13 16:14 | CASEMGMT ---
Referral was sent to [facility]. Patient and family wanted the inpatient Hospice unit. Luna from Hospice met with patient and daughter and Hospice papers were signed. Hospice used their transportation to transport patient to the inpatient unit. Plan: d/c to [facility] inpatient unit. Mary BAKER
[2022-01-13] MEDS: 0.9% Saline Lock 10 ML Syringe IV (16:21)
== END 2022-01-13 16:35 | disposition hospice, inpatient (51) | DRG 177 ==
LOC: ED 01-09 00:01 → MS3 01-09 00:04 → PCU 01-12 08:20
PROVIDERS: Admitting Provider Hospitalist; Emergency Provider Emergency Medicine; PCP Family Medicine; Visit Provider Student in an Organized Health Care Education/Training Program
DX: J69.0 Pneumonitis due to inhalation of food and vomit (principal); J96.01 Acute respiratory failure with hypoxia; E43 Unspecified severe protein-calorie malnutrition; J96.02 Acute respiratory failure with hypercapnia; G12.21 Amyotrophic lateral sclerosis; E87.0 Hyperosmolality and hypernatremia; K56.7 Ileus, unspecified; Z68.1 Body mass index [BMI] 19.9 or less, adult; E86.0 Dehydration; J18.9 Pneumonia, unspecified organism; I10 Essential (primary) hypertension; E78.5 Hyperlipidemia, unspecified; E87.6 Hypokalemia; Z51.5 Encounter for palliative care; Z66 Do not resuscitate; Z79.899 Other long term (current) drug therapy; Z20.822 Contact with and (suspected) exposure to COVID-19
CPT/HCPCS: 36415; 36600; 71045; 71275; 74018; 80048; 82803; 83605; 83735; 84484; 85025; 87040; 87449; 87641; 87804; 87811; 92526; 92610; 93005; 94002; 94003; 94640; 94667; 94668; 94762; 97110; 97162; 97166; 97802; 99251; 99285; J7030; J7040; J7050; Q9967; A4216; G0463; J0696; J1940